=== PATIENT | female | born 1930 | race Hispanic/Latino ===

== ENCOUNTER 2017-03-29 09:00 | Inpatient (IN) | payer MEDICARE ==
--- NOTE | 2017-03-29 09:04 | C.PDOC ---
History Of Present Illness LIIMITED DUE TO CLINICAL CONDITION 86-YEAR-OLD FEMALE, IS BROUGHT TO THE EMERGENCY DEPARTMENT PER EMS CO RESP DISTRESS. PATIENT S/P KETAMINE AND NITROPASTE EN ROUTE, PATIENT STARTED ON CPAP W SOME MILD IMPROVEMENT. PS DENIES PRIOR SIMILAR EPISODE. SX ONGOING FOR 2 DAYS. Time Seen by Provider: 03/29/17 09:02 History Per: EMS History/Exam Limitations: clinical condition Onset/Duration Of Symptoms: Days (2) Current Symptoms Are (Timing): Still Present Past Medical History Reviewed: Historical Data, Nursing Documentation, Vital Signs Vital Signs: Last Vital Signs Temp 97.5 F L 03/29/17 09:00 Pulse 104 H 03/29/17 10:15 Resp 29 H 03/29/17 10:15 BP 167/81 H 03/29/17 10:15 Pulse Ox 100 03/29/17 10:15 Family History: States: No Known Family Hx Review Of Systems Review Of Systems: ROS cannot be obtained secondary to pt's inabilty to answer questions. Respiratory: Positive for: Shortness of Breath Physical Exam - Physical Exam Appears: Other (MOD RESPIRATORY DISTRESS) Skin: Warm, Dry, No Rash Head: Atraumatic, Normacephalic Eye(s): bilateral: Normal Inspection, PERRL Neck: Normal ROM Chest: Symmetrical Cardiovascular: Rhythm Regular, No Murmur Respiratory: Other (CPAP IN PROGRESS, RETRACTIONS, PROLONGED EXPIRATORY WHEEZE. PULMONARY EDEMA) Extremity: Normal ROM ED Course And Treatment - Laboratory Results Result Diagrams: 03/29/17 09:16 03/29/17 09:16 ECG: Interpreted By Me, Viewed By Me ECG Rhythm: Sinus Tachycardia, ST/T Changes (ST DEPRESSION II, III, AVF) Interpretation Of ECG: EKG. RATE: 111BPM. RHYTHM: SINUS TACH. INTERPRET UNCHANGED FROM INITIAL Rate From EC - Radiology CXR: Interpreted by Me, Viewed By Me (VASCULAR PROMINENCE, HYPERINFLATED) Progress - Re-Evaluation Re-evaluation Note: 03/29/17 10:15 Dr Duong listed as med online publisher as per JENNIFER, case was discussed w/ him, states he is no longer online publisher. Dr Cornejo notified. 03/29/17 10:42 APPEARS BETTER COMPARED TO INITIAL, ON BIPAP. VSS. 03/29/17 10:50 D/W DR CORTES MED FENCE ERECTOR WILL ADMIT - Data Reviewed Data Reviewed: Lab, Diagnostic imaging, EKG, Old records - Critical Care Citical Care: Excluding Proc Time Critical Care Time: 90 minutes - Continuity of Care Discussed patient case with:: Patient, On-call PMD-pt unassigned Disposition Counseled Patient/Family Regarding: Studies Performed, Diagnosis, Need For Followup - Disposition Disposition: HOSPITALIZED Disposition Time: 10:44 Condition: STABLE - POA Present On Arrival: None - Clinical Impression Clinical Impression: New onset of congestive heart failure, Dyspnea, Respiratory distress - Scribe Statement The provider has reviewed the documentation as recorded by the Scribe (Yareli Barrera) All medical record entries made by the Scribe were at my direction and personally dictated by me. I have reviewed the chart and agree that the record accurately reflects my personal performance of the history, physical exam, medical decision making, and the department course for this patient. I have also personally directed, reviewed, and agree with the discharge instructions and disposition. Decision To Admit - Pt Status Changed To: Hospital Disposition Of: Inpatient - Admit Certification Admit to Inpatient:: After my assessment, the patient will require hospitalization for at least two midnights. This is because of the severity of symptoms shown, intensity of services needed, and/or the medical risk in this patient being treated as an outpatient. - InPatient: Physician Admission Certification: I certify that this patient requires 2 or more midnights of care for the following reason:: SEE NOTE - . Bed Request Type: Telemetry Admitting Physician: Jorge A Cortes Patient Diagnosis: New onset of congestive heart failure, Dyspnea, Respiratory distress
[2017-03-29 09:13] VITALS: BMI 23.3
[2017-03-29] MEDS ORDERED: MethylPREDNISolone 40 mg Vial ONE (09:23)
[2017-03-29 09:25] LABS: BASO # 0.1 K/uL (0.0-0.2); BASO % 0.8 % (0.0-2.0); HEMOGLOBIN 14.8 g/dL (11.0-16.0); LYMPH # 0.6 K/uL (1.0-4.3); LYMPH % 5.4 % (20.0-40.0); MEAN CELL VOLUME 93.8 fL (81.0-99.0); MEAN CORPUSCULAR HEMOGLOBIN 31.4 pg (27.0-31.0); MEAN CORPUSCULAR HGB CONC 33.4 g/dL (33.0-37.0); MEAN PLATELET VOLUME 8.8 fL (7.2-11.7); MONO # 0.5 K/uL (0.0-0.8); MONO % 4.5 % (0.0-10.0); NEUT % 89.3 % (50.0-75.0); PLATELET COUNT 337 K/uL (130-400); RED CELL DISTRIBUTION WIDTH 14.4 % (11.5-14.5); WHITE BLOOD COUNT 11.2 K/uL (4.8-10.8)
[2017-03-29 09:25] LABS: VENOUS BLOOD GAS BASE EXCESS -2.8 mmol/L (0.0-2.0); VENOUS BLOOD GAS PCO2 37 mmHg (40-60); VENOUS BLOOD GAS PO2 55 mm/Hg (30-55); VENOUS BLOOD PH 7.38 (7.32-7.43)
[2017-03-29] MEDS: Albuterol-Ipratrop 3 mg / 0.5 (3 ml) UD IH SCH ×3 (09:30→09:50)
[2017-03-29 09:32] LABS: INR 1.1; PROTHROMBIN TIME 13.1 SECONDS (9.7-12.2)
--- NOTE | 2017-03-29 09:32 | RAD ---
Chest x-ray single frontal view History: Shortness of breath. Comparison: None available. Findings: Biapical pleural thickening with upper lobe granulomatous changes. Mild venous congestion. Bilateral hilar prominence. Patchy increased markings at the lung bases. Clinical correlation. Tortuous aorta. Heart size within normal limits. Impression: Biapical pleural thickening with upper lobe granulomatous changes. Mild venous congestion. Bilateral hilar prominence. Patchy increased markings at the lung bases. Clinical correlation.
[2017-03-29] MEDS ORDERED: Albuterol-Ipratrop 3 mg / 0.5 (3 ml) UD ONE (09:52)
[2017-03-29 09:54] LABS: ALBUMIN 4.4 g/dL (3.5-5.0); CALCIUM 8.5 mg/dl (8.6-10.4); GFR AFRICAN-AMERICAN > 60; GFR NON-AFRICAN AMERICAN 59
[2017-03-29 09:56] LABS: ALB/GLOB RATIO 1.1 (1.0-2.1); ALT/SGPT 15 U/L (9-52); AST/SGOT 31 U/L (14-36); BLOOD UREA NITROGEN 16 mg/dL (7-17); MAGNESIUM 1.5 mg/dL (1.6-2.3)
[2017-03-29 09:57] LABS: ABG ALLEN TEST POS; ARTERIAL BLOOD GAS O2 SAT 97.9 % (95-98); ARTERIAL BLOOD GAS PCO2 29 mm/Hg (35-45); ARTERIAL BLOOD GAS PH 7.45 (7.35-7.45); ARTERIAL BLOOD GAS PO2 212 mm/Hg (80-100); ARTERIAL BLOOD GAS TCO2 21.1 mmol/L (22-28)
[2017-03-29 10:06] LABS: B-TYPE NATRIURETIC PEPTIDE 4650 pg/mL (0-900)
[2017-03-29 10:20] LABS: LYMPHOCYTE 4 % (20-40); MONOCYTE 6 % (0-10); NEUTROPHIL 90 % (50-75); TOTAL CELLS COUNTED 100
[2017-03-29 10:21] LABS: PLATELET ESTIMATE NORMAL (NORMAL)
[2017-03-29] MEDS ORDERED: Metoprolol Succinate 12.5 mg XL PO ONE (12:38)
[2017-03-29 12:44] LABS: SQUAMOUS EPITHIAL < 1 /hpf (0-5); URINE BILIRUBIN NEGATIVE (NEGATIVE); URINE BLOOD 2+ (NEGATIVE); URINE CLARITY Clear (Clear); URINE COLOR Yellow (YELLOW); URINE GLUCOSE (UA) NORMAL (Normal); URINE LEUKOCYTE ESTERASE 1+ Leu/uL (Negative); URINE NITRATE NEGATIVE (NEGATIVE); URINE PROTEIN 2+ mg/dL (NEGATIVE); URINE UROBILINOGEN NORMAL mg/dL (0.2-1.0)
[2017-03-29] MEDS: Amoxicillin-Clav 500-125 mg Tab PO SCH (15:35)
[2017-03-29 16:17] LABS: CK-MB 1.54 ng/mL (0.0-3.38); TROPONIN I 0.084 ng/mL (0.00-0.120)
[2017-03-29] MEDS: guaiFENesin 600 mg ER Tab PO SCH (18:19)
--- NOTE | 2017-03-29 18:36 | CP.PCM.CON ---
Past Patient History - Past Social History Smoking Status: Never Smoked - PSYCHIATRIC Hx Substance Use: No - SURGICAL HISTORY Hx Surgeries: No - ANESTHESIA Hx Anesthesia: No Meds Allergies/Adverse Reactions: Allergies Allergy/AdvReac Type Severity Reaction Status Date / Time No Known Allergies Allergy Verified 03/29/17 09:13 - Medications Medications: Current Medications Albuterol/Ipratropium (Duoneb 3 Mg/0.5 Mg (3 Ml) Ud) 3 ml INH RQ6 [facility] Amoxicillin/Clavulanate Potassium (Augmentin 500 Mg-125 Mg Tab) 1 tab PO Q12H [facility] Last Admin: 03/29/17 15:35 Dose: 1 tab Aspirin (Aspirin Chewable) 81 mg PO DAILY [facility] Enoxaparin Sodium (Lovenox) 40 mg SC DAILY [facility] Guaifenesin (Mucinex La) 600 mg PO BID [facility] Last Admin: 03/29/17 18:19 Dose: 600 mg Methylprednisolone (Solu-Medrol) 60 mg IV Q12 [facility] Metoprolol Succinate (Toprol Xl) 12.5 mg PO DAILY [facility] Rosuvastatin Calcium (Crestor) 10 mg PO [facility] Results - Vital Signs Recent Vital Signs: Last Vital Signs Temp 98.0 F 03/29/17 16:27 Pulse 80 03/29/17 16:27 Resp 22 03/29/17 16:27 BP 155/59 H 03/29/17 16:27 Pulse Ox 100 03/29/17 16:27 - Labs Result Diagrams: 03/29/17 09:16 03/29/17 09:16 Labs: Laboratory Results - last 24 hr 03/29/17 03/29/17 03/29/17 09:04 09:16 09:16 WBC 11.2 H RBC 4.70 Hgb 14.8 Hct 44.1 MCV 93.8 MCH 31.4 H MCHC 33.4 RDW 14.4 Plt Count 337 MPV 8.8 Neut % (Auto) 89.3 H Lymph % (Auto) 5.4 L Grainger % (Auto) 4.5 Eos % (Auto) 0.0 Baso % (Auto) 0.8 Neut # 10.0 H Lymph # 0.6 L Grainger # 0.5 Eos # 0.0 Baso # 0.1 Neutrophils % (Manual) 90 H Lymphocytes % (Manual) 4 L Monocytes % (Manual) 6 Platelet Estimate Normal RBC Morphology Normal PT 13.1 H INR 1.1 APTT 26 Puncture Site pCO2 pO2 HCO3 ABG pH ABG Total CO2 ABG O2 Saturation ABG Base Excess Eliseo Test ABG Potassium VBG pH VBG pCO2 VBG HCO3 VBG Total CO2 VBG O2 Sat (Calc) VBG Base Excess VBG Potassium A-a O2 Difference Respiratory Index Glucose Lactate Vent Mode FiO2 Inspiratory BiPAP Expiratory BiPAP Sodium Potassium Chloride Carbon Dioxide Anion Gap BUN Creatinine Est GFR ( Amer) Est GFR (Non-Af Amer) Random Glucose Calcium Magnesium Total Bilirubin AST ALT Alkaline Phosphatase Total Creatine Kinase CK-MB (Mass) Troponin I NT-Pro-B Natriuret Pep Total Protein Albumin Globulin Albumin/Globulin Ratio Arterial Blood Potassium Venous Blood Potassium Urine Color Urine Clarity Urine pH Ur Specific [place] Urine Protein Urine Glucose (UA) Urine Ketones Urine Blood Urine Nitrate Urine Bilirubin Urine Urobilinogen Ur Leukocyte Esterase Urine WBC (Auto) Urine RBC (Auto) Ur Squamous Epith Cells Influenza Typ A,B (EIA) Negative for flu a/b 03/29/17 03/29/17 03/29/17 09:16 09:22 09:54 WBC RBC Hgb Hct MCV MCH MCHC RDW Plt Count MPV Neut % (Auto) Lymph % (Auto) Grainger % (Auto) Eos % (Auto) Baso % (Auto) Neut # Lymph # Grainger # Eos # Baso # Neutrophils % (Manual) Lymphocytes % (Manual) Monocytes % (Manual) Platelet Estimate RBC Morphology PT INR APTT Puncture Site Lra pCO2 29 L pO2 55 212 H HCO3 23.0 ABG pH 7.45 ABG Total CO2 21.1 L ABG O2 Saturation 97.9 ABG Base Excess -2.6 L Eliseo Test Pos ABG Potassium 3.4 L VBG pH 7.38 VBG pCO2 37 L VBG HCO3 22.5 VBG Total CO2 23.0 VBG O2 Sat (Calc) 90.4 H VBG Base Excess -2.8 L VBG Potassium 5.6 H A-a O2 Difference 108.0 Respiratory Index 0.5 Glucose 154 H 145 H Lactate 1.5 1.0 Vent Mode Bipap FiO2 50.0 Inspiratory BiPAP 12 Expiratory BiPAP 6 Sodium 135 138.0 138.0 Potassium 4.4 Chloride 102 106.0 108.0 H Carbon Dioxide 20 L Anion Gap 18 BUN 16 Creatinine 0.9 Est GFR ( Amer) > 60 Est GFR (Non-Af Amer) 59 Random Glucose 144 H Calcium 8.5 L Magnesium 1.5 L Total Bilirubin 0.9 AST 31 ALT 15 Alkaline Phosphatase 67 Total Creatine Kinase CK-MB (Mass) Troponin I 0.0820 NT-Pro-B Natriuret Pep 4650 H Total Protein 8.5 H Albumin 4.4 Globulin 4.0 H Albumin/Globulin Ratio 1.1 Arterial Blood Potassium 3.4 L Venous Blood Potassium 5.6 H Urine Color Urine Clarity Urine pH Ur Specific [place] Urine Protein Urine Glucose (UA) Urine Ketones Urine Blood Urine Nitrate Urine Bilirubin Urine Urobilinogen Ur Leukocyte Esterase Urine WBC (Auto) Urine RBC (Auto) Ur Squamous Epith Cells Influenza Typ A,B (EIA) 03/29/17 03/29/17 12:18 15:46 WBC RBC Hgb Hct MCV MCH MCHC RDW Plt Count MPV Neut % (Auto) Lymph % (Auto) Grainger % (Auto) Eos % (Auto) Baso % (Auto) Neut # Lymph # Grainger # Eos # Baso # Neutrophils % (Manual) Lymphocytes % (Manual) Monocytes % (Manual) Platelet Estimate RBC Morphology PT INR APTT Puncture Site pCO2 pO2 HCO3 ABG pH ABG Total CO2 ABG O2 Saturation ABG Base Excess Eliseo Test ABG Potassium VBG pH VBG pCO2 VBG HCO3 VBG Total CO2 VBG O2 Sat (Calc) VBG Base Excess VBG Potassium A-a O2 Difference Respiratory Index Glucose Lactate Vent Mode FiO2 Inspiratory BiPAP Expiratory BiPAP Sodium Potassium Chloride Carbon Dioxide Anion Gap BUN Creatinine Est GFR ( Amer) Est GFR (Non-Af Amer) Random Glucose Calcium Magnesium Total Bilirubin AST ALT Alkaline Phosphatase Total Creatine Kinase 106 CK-MB (Mass) 1.54 Troponin I 0.0840 NT-Pro-B Natriuret Pep Total Protein Albumin Globulin Albumin/Globulin Ratio Arterial Blood Potassium Venous Blood Potassium Urine Color Yellow Urine Clarity Clear Urine pH 5.0 Ur Specific [place] 1.010 Urine Protein 2+ H Urine Glucose (UA) Normal Urine Ketones Negative Urine Blood 2+ H Urine Nitrate Negative Urine Bilirubin Negative Urine Urobilinogen Normal Ur Leukocyte Esterase 1+ H Urine WBC (Auto) 16 H Urine RBC (Auto) 5 H Ur Squamous Epith Cells < 1 Influenza Typ A,B (EIA)
[2017-03-29] MEDS: Albuterol-Ipratrop 3 mg / 0.5 (3 ml) UD INH SCH (20:50)
--- NOTE | 2017-03-29 22:28 | CON ---
DATE: CARDIOLOGY CONSULTATION HISTORY OF PRESENT ILLNESS: This is an 86-year-old white female, came to the emergency room. The patient was brought to the emergency room by EMS. The patient was given ketamine and nitro paste en route. The patient complained of shortness of breath, which was increasing for the last 2 days. The patient also has mild chest pain. No history of nausea, vomiting or abdominal pain. The patient appears confused. The patient was started on CPAP with mild improvement. PAST MEDICAL HISTORY: History of hypertension, atherosclerotic heart disease. The patient is on Benicar 20 mg p.o. daily. No myocardial infarction. FAMILY HISTORY: No known inherited disease. SOCIAL HISTORY: The patient is a nonsmoker, nonalcoholic. No IVDA. ALLERGIES: NO KNOWN ALLERGY. REVIEW OF SYSTEMS: Respiratory system positive for shortness of breath. GI system negative for nausea, vomiting, abdominal pain. COAT EXAMINER: No focal neurological complaints offered. Cardiovascular system: Positive for mild chest pain. No edema of the legs. No urinary complaints. Psychiatrically, the patient is stable. All other systems are negative. PHYSICAL EXAMINATION: GENERAL: This is an 86-year-old white female, tachypneic, dyspneic. VITAL SIGNS: Temperature 97.5, pulse 104, respirations 29, blood pressure 167/81 mmHg, pulse ox is 100% at room air. HEENT: Normal. NECK: JVP is flat. Carotids, no bruit. LUNGS: Bilateral rales present. Poor air entry. No wheezing. HEART: S1, S2 normal. Tachycardic. No gallop. No murmur. ABDOMEN: Soft, nontender. No organomegaly. COAT EXAMINER: No focal neurological deficit. EXTREMITIES: No edema of the legs. LABORATORY DATA: On admission, EKG shows sinus tachycardia with left axis deviation. Nonspecific ST-T changes. CBC is within normal limits. BMP shows blood sugar 144 and potassium 4.4. Chest x-ray shows bilateral apical thickening and mild pulmonary congestion. IMPRESSION: Congestive heart failure. Rule out acute chronic obstructive pulmonary disease. PLAN: The patient will be admitted. Suggest aggravate the present management. The patient will need diuretic and beta blockers. Echocardiogram and work up to rule out myocardial infarction. Deshawn Ambrose MD
--- NOTE | 2017-03-29 23:31 | CP.PCM.HP ---
History of Present Illness - History of Present Illness History of Present Illness: CC: SHORTNESS OF BREATH, CHEST PAIN' HPI: 86-YEAR-OLD WHITE FEMALE WITH H/O HTN, HYPERLIPIDEMIA, AND SHE IS CHRONIC SMOKER , IS BROUGHT TO THE EMERGENCY DEPARTMENT PER EMS CO RESP DISTRESS, COUGH , CONGESTION AND SHOTNESS OF BREATH PATIENT S/P KETAMINE AND NITROPASTE EN ROUTE , PATIENT STARTED ON CPAP W SOME MILD IMPROVEMENT. PS DENIES PRIOR SIMILAR EPISODE. SX ONGOING FOR 2 DAYS. PT WAS HAVING EXERTIONAL CHEST PAIN ON TAKING DEEP BREATH Present on Admission - Present on Admission Any Indicators Present on Admission: Yes Review of Systems - Review of Systems Systems not reviewed;Unavailable: Respiratory Distress - Constitutional Constitutional: Fatigue, Lethargy, Malaise - EENT Eyes: absent: As Per HPI, Blind Spots, Blurred Vision, Change in Vision, Decreased Night Vision, Diplopia, Discharge, Dry Eye, Exophthalmos, Floaters, Irritation, Itchy Eyes, Loss of Peripheral Vision, Pain, Photophobia, Requires Corrective Lenses, Sees Flashes, Spots in Vision, Tunnel Vision, Other Visual Disturbances, Loss of Vision, Other Ears: absent: As Per HPI, Decreased Hearing, Ear Discharge, Ear Pain, Tinnitus, Abnormal Hearing, Disequilibrium, Dizziness, Other Nose/Mouth/Throat: absent: As Per HPI, Epistaxis, Nasal Congestion, Nasal Discharge, Nasal Obstruction, Nasal Trauma, Nose Pain, Post Nasal Drip, Sinus Pain, Sinus Pressure, Bleeding Gums, Change in Voice, Dental Pain, Dry Mouth, Dysphagia, Halitosis, Hoarsness, Lip Swelling, Mouth Lesions, Mouth Pain, Odynophagia, Sore Throat, Throat Swelling, Tongue Swelling, Facial Pain, Neck Pain, Neck Mass, Other - Respiratory Respiratory: Cough, Dyspnea, Dyspnea on Exertion, Pain on Inspiration - Gastrointestinal Gastrointestinal: absent: As Per HPI, Abdominal Pain, Belching, Bloating, Change in Bowel Habits, Change in Stool Character, Coffee Ground Emesis, Constipation, Cramping, Diarrhea, Dyspepsia, Dysphagia, Early Satiety, Excessive Flatus, Fecal Incontinence, Heartburn, Hematemesis, Hematochezia, Loose Stools, Melena, Nausea, Odynophagia, Temesmus, Vomiting, Other - Genitourinary Genitourinary: absent: As Per HPI, Change in Urinary Stream, Difficulty Urinating, Dysuria, Flank Pain, Hematuria, Pyuria, Nocturia, Urinary Incontinence, Urinary Frequency, Urinary Hesitance, Urinary Urgency, Voiding Freq/Small Amts, Freq UTI, Hx Renal/Bladder Calculi, Hx /Renal Surgery, Bladder Distension, Other Past Patient History - Past Medical History & Family History Past Medical History?: Yes - Past Social History Smoking Status: Current Some Days Smoker - CARDIAC Hx Hypertension: Yes - MUSCULOSKELETAL/RHEUMATOLOGICAL Hx Falls: No - PSYCHIATRIC Hx Substance Use: No - SURGICAL HISTORY Hx Surgeries: No Hx Hysterectomy: Yes - ANESTHESIA Hx Anesthesia: Yes Hx Anesthesia Reactions: No Meds Allergies/Adverse Reactions: Allergies Allergy/AdvReac Type Severity Reaction Status Date / Time No Known Allergies Allergy Verified 03/29/17 09:13 Physical Exam - Constitutional Appears: No Acute Distress - Head Exam Head Exam: ATRAUMATIC, NORMAL INSPECTION, NORMOCEPHALIC - Eye Exam Eye Exam: EOMI, Normal appearance, PERRL Pupil Exam: NORMAL ACCOMODATION, PERRL - Respiratory Exam Respiratory Exam: Decreased Breath Sounds, Rales, Rhonchi - Cardiovascular Exam Cardiovascular Exam: REGULAR RHYTHM, +S1, +S2, Systolic Murmur - GI/Abdominal Exam GI & Abdominal Exam: Normal Bowel Sounds, Soft. absent: Tenderness Results - Vital Signs Recent Vital Signs: Last Vital Signs Temp 98.0 F 03/29/17 16:27 Pulse 80 03/29/17 21:23 Resp 22 03/29/17 16:27 BP 155/59 H 03/29/17 16:27 Pulse Ox 100 03/29/17 16:27 - Labs Result Diagrams: 03/29/17 09:16 03/29/17 09:16 Labs: Laboratory Results - last 24 hr 03/29/17 03/29/17 03/29/17 09:04 09:16 09:16 WBC 11.2 H RBC 4.70 Hgb 14.8 Hct 44.1 MCV 93.8 MCH 31.4 H MCHC 33.4 RDW 14.4 Plt Count 337 MPV 8.8 Neut % (Auto) 89.3 H Lymph % (Auto) 5.4 L Potter % (Auto) 4.5 Eos % (Auto) 0.0 Baso % (Auto) 0.8 Neut # 10.0 H Lymph # 0.6 L Potter # 0.5 Eos # 0.0 Baso # 0.1 Neutrophils % (Manual) 90 H Lymphocytes % (Manual) 4 L Monocytes % (Manual) 6 Platelet Estimate Normal RBC Morphology Normal PT 13.1 H INR 1.1 APTT 26 Puncture Site pCO2 pO2 HCO3 ABG pH ABG Total CO2 ABG O2 Saturation ABG Base Excess Eliseo Test ABG Potassium VBG pH VBG pCO2 VBG HCO3 VBG Total CO2 VBG O2 Sat (Calc) VBG Base Excess VBG Potassium A-a O2 Difference Respiratory Index Glucose Lactate Vent Mode FiO2 Inspiratory BiPAP Expiratory BiPAP Sodium Potassium Chloride Carbon Dioxide Anion Gap BUN Creatinine Est GFR ( Amer) Est GFR (Non-Af Amer) Random Glucose Calcium Magnesium Total Bilirubin AST ALT Alkaline Phosphatase Total Creatine Kinase CK-MB (Mass) Troponin I NT-Pro-B Natriuret Pep Total Protein Albumin Globulin Albumin/Globulin Ratio Arterial Blood Potassium Venous Blood Potassium Urine Color Urine Clarity Urine pH Ur Specific [place] Urine Protein Urine Glucose (UA) Urine Ketones Urine Blood Urine Nitrate Urine Bilirubin Urine Urobilinogen Ur Leukocyte Esterase Urine WBC (Auto) Urine RBC (Auto) Ur Squamous Epith Cells Influenza Typ A,B (EIA) Negative for flu a/b 03/29/17 03/29/17 03/29/17 09:16 09:22 09:54 WBC RBC Hgb Hct MCV MCH MCHC RDW Plt Count MPV Neut % (Auto) Lymph % (Auto) Potter % (Auto) Eos % (Auto) Baso % (Auto) Neut # Lymph # Potter # Eos # Baso # Neutrophils % (Manual) Lymphocytes % (Manual) Monocytes % (Manual) Platelet Estimate RBC Morphology PT INR APTT Puncture Site Lra pCO2 29 L pO2 55 212 H HCO3 23.0 ABG pH 7.45 ABG Total CO2 21.1 L ABG O2 Saturation 97.9 ABG Base Excess -2.6 L Eliseo Test Pos ABG Potassium 3.4 L VBG pH 7.38 VBG pCO2 37 L VBG HCO3 22.5 VBG Total CO2 23.0 VBG O2 Sat (Calc) 90.4 H VBG Base Excess -2.8 L VBG Potassium 5.6 H A-a O2 Difference 108.0 Respiratory Index 0.5 Glucose 154 H 145 H Lactate 1.5 1.0 Vent Mode Bipap FiO2 50.0 Inspiratory BiPAP 12 Expiratory BiPAP 6 Sodium 135 138.0 138.0 Potassium 4.4 Chloride 102 106.0 108.0 H Carbon Dioxide 20 L Anion Gap 18 BUN 16 Creatinine 0.9 Est GFR ( Amer) > 60 Est GFR (Non-Af Amer) 59 Random Glucose 144 H Calcium 8.5 L Magnesium 1.5 L Total Bilirubin 0.9 AST 31 ALT 15 Alkaline Phosphatase 67 Total Creatine Kinase CK-MB (Mass) Troponin I 0.0820 NT-Pro-B Natriuret Pep 4650 H Total Protein 8.5 H Albumin 4.4 Globulin 4.0 H Albumin/Globulin Ratio 1.1 Arterial Blood Potassium 3.4 L Venous Blood Potassium 5.6 H Urine Color Urine Clarity Urine pH Ur Specific [place] Urine Protein Urine Glucose (UA) Urine Ketones Urine Blood Urine Nitrate Urine Bilirubin Urine Urobilinogen Ur Leukocyte Esterase Urine WBC (Auto) Urine RBC (Auto) Ur Squamous Epith Cells Influenza Typ A,B (EIA) 03/29/17 03/29/17 12:18 15:46 WBC RBC Hgb Hct MCV MCH MCHC RDW Plt Count MPV Neut % (Auto) Lymph % (Auto) Potter % (Auto) Eos % (Auto) Baso % (Auto) Neut # Lymph # Potter # Eos # Baso # Neutrophils % (Manual) Lymphocytes % (Manual) Monocytes % (Manual) Platelet Estimate RBC Morphology PT INR APTT Puncture Site pCO2 pO2 HCO3 ABG pH ABG Total CO2 ABG O2 Saturation ABG Base Excess Eliseo Test ABG Potassium VBG pH VBG pCO2 VBG HCO3 VBG Total CO2 VBG O2 Sat (Calc) VBG Base Excess VBG Potassium A-a O2 Difference Respiratory Index Glucose Lactate Vent Mode FiO2 Inspiratory BiPAP Expiratory BiPAP Sodium Potassium Chloride Carbon Dioxide Anion Gap BUN Creatinine Est GFR ( Amer) Est GFR (Non-Af Amer) Random Glucose Calcium Magnesium Total Bilirubin AST ALT Alkaline Phosphatase Total Creatine Kinase 106 CK-MB (Mass) 1.54 Troponin I 0.0840 NT-Pro-B Natriuret Pep Total Protein Albumin Globulin Albumin/Globulin Ratio Arterial Blood Potassium Venous Blood Potassium Urine Color Yellow Urine Clarity Clear Urine pH 5.0 Ur Specific [place] 1.010 Urine Protein 2+ H Urine Glucose (UA) Normal Urine Ketones Negative Urine Blood 2+ H Urine Nitrate Negative Urine Bilirubin Negative Urine Urobilinogen Normal Ur Leukocyte Esterase 1+ H Urine WBC (Auto) 16 H Urine RBC (Auto) 5 H Ur Squamous Epith Cells < 1 Influenza Typ A,B (EIA) Assessment & Plan (1) Dyspnea Status: Acute (2) New onset of congestive heart failure Status: Acute (3) Respiratory distress Status: Acute
[2017-03-30] MEDS ORDERED: Enalaprilat 2.5 MG/2 ML IV ONE (01:03)
[2017-03-30] MEDS: Amoxicillin-Clav 500-125 mg Tab PO SCH ×2 (01:05→13:38)
[2017-03-30] MEDS: Albuterol-Ipratrop 3 mg / 0.5 (3 ml) UD INH SCH ×4 (01:59→20:08)
[2017-03-30] MEDS ORDERED: Nitroglycerin 2% Ointment Foilpak UD TOP SCH (06:00)
[2017-03-30] MEDS: Nitroglycerin 2% Ointment Foilpak UD TOP SCH ×3 (06:12→17:27)
[2017-03-30] MEDS: Enoxaparin 40 mg Syringe SC SCH (09:42)
[2017-03-30] MEDS: guaiFENesin 600 mg ER Tab PO SCH ×2 (09:43→17:26)
[2017-03-30] MEDS ORDERED: Metoprolol Succinate 12.5 mg XL PO SCH (10:00)
--- NOTE | 2017-03-30 12:04 | CP.PCM.PN ---
Subjective - Date & Time of Evaluation Date of Evaluation: 03/30/17 Time of Evaluation: 12:01 - Subjective Subjective: SOB PRESENT. RESP DISTRESS. CHF COPD HTN. Objective - Vital Signs/Intake and Output Vital Signs (last 24 hours): Temp Pulse Resp BP Pulse Ox 99.0 F 78 18 156/66 H 97 03/30/17 07:25 03/30/17 08:46 03/30/17 07:25 03/30/17 09:43 03/30/17 07:25 Intake and Output: 03/30/17 03/30/17 06:59 18:59 Intake Total 200 Balance 200 - Medications Medications: Current Medications Albuterol/Ipratropium (Duoneb 3 Mg/0.5 Mg (3 Ml) Ud) 3 ml INH RQ6 [facility] Last Admin: 03/30/17 08:46 Dose: 3 ml Amoxicillin/Clavulanate Potassium (Augmentin 500 Mg-125 Mg Tab) 1 tab PO Q12H [facility] Last Admin: 03/30/17 01:05 Dose: 1 tab Aspirin (Aspirin Chewable) 81 mg PO DAILY [facility] Last Admin: 03/30/17 09:43 Dose: 81 mg Enoxaparin Sodium (Lovenox) 40 mg SC DAILY [facility] Last Admin: 03/30/17 09:42 Dose: 40 mg Furosemide (Lasix) 20 mg IVP DAILY [facility] Last Admin: 03/30/17 09:43 Dose: 20 mg Guaifenesin (Mucinex La) 600 mg PO BID [facility] Last Admin: 03/30/17 09:43 Dose: 600 mg Methylprednisolone (Solu-Medrol) 60 mg IV Q6 [facility] Last Admin: 03/30/17 06:14 Dose: 60 mg Metoprolol Succinate (Toprol Xl) 12.5 mg PO DAILY [facility] Last Admin: 03/30/17 09:43 Dose: 12.5 mg Nitroglycerin (Nitro-Bid 2% Oint) 1 ea TOP Q6 [facility] Last Admin: 03/30/17 06:12 Dose: 1 ea Pneumococcal Polyvalent Vaccine (Pneumovax 23 Vaccine) 0.5 ml IM .ONCE ONE Stop: 04/01/17 10:01 Rosuvastatin Calcium (Crestor) 10 mg PO HS [facility] Last Admin: 03/29/17 22:16 Dose: 10 mg - Labs Labs: 03/29/17 09:16 03/29/17 09:16 PT 13.1 SECONDS (9.7-12.2) H 03/29/17 09:16 INR 1.1 03/29/17 09:16 APTT 26 SECONDS (21-34) 03/29/17 09:16 - Constitutional Appears: In Acute Distress, Chronically Ill - Eye Exam Eye Exam: PERRL - ENT Exam ENT Exam: Mucous Membranes Moist - Respiratory Exam Respiratory Exam: Decreased Breath Sounds, Rhonchi - Cardiovascular Exam Cardiovascular Exam: REGULAR RHYTHM, +S1, +S2 - GI/Abdominal Exam GI & Abdominal Exam: Soft, Normal Bowel Sounds - Extremities Exam Extremities Exam: Full ROM, Normal Capillary Refill, Normal Inspection. absent : Joint Swelling, Pedal Edema - Back Exam Back Exam: NORMAL INSPECTION - Neurological Exam Neurological Exam: Alert, Awake, CN II-XII Intact, Normal Gait, Oriented x3 - Psychiatric Exam Psychiatric exam: Normal Affect, Normal Mood Assessment and Plan - Assessment and Plan (Free Text) Assessment: CHF.COPD. Plan: FOR DIURETICS AND BETA BLOCKERS.
--- NOTE | 2017-03-30 12:57 | CP.PCM.PN ---
Subjective - Date & Time of Evaluation Date of Evaluation: 03/30/17 Time of Evaluation: 11:15 - Subjective Subjective: patient seen and examined Still complaining of shortness of breath On BiPAP at night Afebrile Dry cough No chest pain Objective - Vital Signs/Intake and Output Vital Signs (last 24 hours): Temp Pulse Resp BP Pulse Ox 99.0 F 78 18 156/66 H 97 03/30/17 07:25 03/30/17 08:46 03/30/17 07:25 03/30/17 09:43 03/30/17 07:25 Intake and Output: 03/30/17 03/30/17 06:59 18:59 Intake Total 200 Balance 200 - Medications Medications: Current Medications Albuterol/Ipratropium (Duoneb 3 Mg/0.5 Mg (3 Ml) Ud) 3 ml INH RQ6 [facility] Last Admin: 03/30/17 08:46 Dose: 3 ml Amoxicillin/Clavulanate Potassium (Augmentin 500 Mg-125 Mg Tab) 1 tab PO Q12H [facility] Last Admin: 03/30/17 01:05 Dose: 1 tab Aspirin (Aspirin Chewable) 81 mg PO DAILY [facility] Last Admin: 03/30/17 09:43 Dose: 81 mg Enoxaparin Sodium (Lovenox) 40 mg SC DAILY [facility] Last Admin: 03/30/17 09:42 Dose: 40 mg Furosemide (Lasix) 20 mg IVP DAILY [facility] Last Admin: 03/30/17 09:43 Dose: 20 mg Guaifenesin (Mucinex La) 600 mg PO BID [facility] Last Admin: 03/30/17 09:43 Dose: 600 mg Methylprednisolone (Solu-Medrol) 60 mg IV Q6 [facility] Last Admin: 03/30/17 06:14 Dose: 60 mg Metoprolol Succinate (Toprol Xl) 12.5 mg PO DAILY [facility] Last Admin: 03/30/17 09:43 Dose: 12.5 mg Nitroglycerin (Nitro-Bid 2% Oint) 1 ea TOP Q6 [facility] Last Admin: 03/30/17 06:12 Dose: 1 ea Pneumococcal Polyvalent Vaccine (Pneumovax 23 Vaccine) 0.5 ml IM .ONCE ONE Stop: 04/01/17 10:01 Rosuvastatin Calcium (Crestor) 10 mg PO HS [facility] Last Admin: 03/29/17 22:16 Dose: 10 mg - Labs Labs: 03/29/17 09:16 03/29/17 09:16 PT 13.1 SECONDS (9.7-12.2) H 03/29/17 09:16 INR 1.1 03/29/17 09:16 APTT 26 SECONDS (21-34) 03/29/17 09:16 - Head Exam Head Exam: ATRAUMATIC, NORMOCEPHALIC - Eye Exam Eye Exam: Normal appearance - ENT Exam ENT Exam: Mucous Membranes Moist - Neck Exam Neck Exam: Normal Inspection - Respiratory Exam Respiratory Exam: Rhonchi, Wheezes - Cardiovascular Exam Cardiovascular Exam: REGULAR RHYTHM - GI/Abdominal Exam GI & Abdominal Exam: Soft, Normal Bowel Sounds Assessment and Plan (1) COPD exacerbation Assessment & Plan: Patient witlong history of smoking Continue nebulizer treatment Continue IV steroids BiPAP Pulmonary function test Followup ABG room air Status: Acute (2) Respiratory distress Status: Acute
[2017-03-30] MEDS ORDERED: Albuterol-Ipratrop 3 mg / 0.5 (3 ml) UD INH STA (18:11)
[2017-03-30] MEDS: Atropine-Diphenoxylate 0.025-2.5 mg Tab PO PRN (20:19)
--- NOTE | 2017-03-30 23:29 | CP.PCM.PN ---
Subjective - Date & Time of Evaluation Date of Evaluation: 03/30/17 Time of Evaluation: 19:20 - Subjective Subjective: patient seen and examined, c/o loose wattery stool Still complaining of shortness of breath On BiPAP at night Afebrile Dry cough No chest pain Objective - Vital Signs/Intake and Output Vital Signs (last 24 hours): Temp Pulse Resp BP Pulse Ox 98 F 90 20 166/74 H 96 03/30/17 15:53 03/30/17 22:52 03/30/17 15:53 03/30/17 15:53 03/30/17 15:53 Intake and Output: 03/30/17 03/31/17 18:59 06:59 Intake Total 250 Balance 250 - Medications Medications: Current Medications Albuterol/Ipratropium (Duoneb 3 Mg/0.5 Mg (3 Ml) Ud) 3 ml INH RQ6 [facility] Last Admin: 03/30/17 20:08 Dose: Not Given Amoxicillin/Clavulanate Potassium (Augmentin 500 Mg-125 Mg Tab) 1 tab PO Q12H [facility] Last Admin: 03/30/17 13:38 Dose: 1 tab Aspirin (Aspirin Chewable) 81 mg PO DAILY [facility] Last Admin: 03/30/17 09:43 Dose: 81 mg Diphenoxylate HCl/Atropine (Lomotil 0.025-2.5 Mg Tablet) 1 tab PO Q4 PRN PRN Reason: Diarrhea Last Admin: 03/30/17 20:19 Dose: 1 tab Enoxaparin Sodium (Lovenox) 40 mg SC DAILY [facility] Last Admin: 03/30/17 09:42 Dose: 40 mg Furosemide (Lasix) 20 mg IVP DAILY [facility] Last Admin: 03/30/17 09:43 Dose: 20 mg Guaifenesin (Mucinex La) 600 mg PO BID [facility] Last Admin: 03/30/17 17:26 Dose: 600 mg Loperamide HCl (Imodium) 2 mg PO Q4 PRN PRN Reason: Diarrhea Losartan Potassium (Cozaar) 50 mg PO DAILY [facility] Methylprednisolone (Solu-Medrol) 60 mg IV Q6 [facility] Last Admin: 03/30/17 17:27 Dose: 60 mg Metoprolol Succinate (Toprol Xl) 25 mg PO DAILY [facility] Pneumococcal Polyvalent Vaccine (Pneumovax 23 Vaccine) 0.5 ml IM .ONCE ONE Stop: 04/01/17 10:01 Rosuvastatin Calcium (Crestor) 10 mg PO HS [facility] Last Admin: 03/30/17 21:20 Dose: 10 mg - Labs Labs: 03/29/17 09:16 03/29/17 09:16 PT 13.1 SECONDS (9.7-12.2) H 03/29/17 09:16 INR 1.1 03/29/17 09:16 APTT 26 SECONDS (21-34) 03/29/17 09:16 - Constitutional Appears: No Acute Distress - Head Exam Head Exam: ATRAUMATIC, NORMAL INSPECTION, NORMOCEPHALIC - Eye Exam Eye Exam: EOMI, Normal appearance, PERRL Pupil Exam: NORMAL ACCOMODATION, PERRL - Respiratory Exam Respiratory Exam: Decreased Breath Sounds, Rhonchi - Cardiovascular Exam Cardiovascular Exam: REGULAR RHYTHM, +S1, +S2. absent: Murmur - GI/Abdominal Exam GI & Abdominal Exam: Soft, Normal Bowel Sounds. absent: Tenderness Assessment and Plan (1) Dyspnea Status: Acute (2) New onset of congestive heart failure Status: Acute (3) Respiratory distress Status: Acute (4) Diarrhea Assessment & Plan: most ikely due to zithromax D/c zithro Status: Acute
[2017-03-31] MEDS: Amoxicillin-Clav 500-125 mg Tab PO SCH ×2 (00:10→11:56)
[2017-03-31] MEDS: Albuterol-Ipratrop 3 mg / 0.5 (3 ml) UD INH SCH ×4 (01:09→19:17)
[2017-03-31 06:55] LABS: BLOOD UREA NITROGEN 43 mg/dL (7-17); CALCIUM 8.3 mg/dl (8.6-10.4); GFR AFRICAN-AMERICAN > 60; GFR NON-AFRICAN AMERICAN 59
[2017-03-31 06:57] LABS: HEMOGLOBIN 14.3 g/dL (11.0-16.0); MEAN CELL VOLUME 94.4 fL (81.0-99.0); MEAN CORPUSCULAR HGB CONC 33.8 g/dL (33.0-37.0); MEAN PLATELET VOLUME 8.4 fL (7.2-11.7); RBC 4.48 Mil/uL (3.80-5.20); RED CELL DISTRIBUTION WIDTH 14.4 % (11.5-14.5); WHITE BLOOD COUNT 12.4 K/uL (4.8-10.8)
[2017-03-31] MEDS: Enoxaparin 40 mg Syringe SC SCH (08:59)
[2017-03-31] MEDS: Metoprolol Succinate 25 mg XL Tab PO SCH (08:59)
[2017-03-31] MEDS: guaiFENesin 600 mg ER Tab PO SCH ×2 (08:59→17:25)
--- NOTE | 2017-03-31 10:46 | CP.PCM.PN ---
Subjective - Date & Time of Evaluation Date of Evaluation: 03/31/17 Time of Evaluation: 10:44 - Subjective Subjective: SLIGHTLY BETTER. SOB PRESENT. ON BIPAP. BP HIGH. BUN 40. D/C LASIX. LOSARTAN ADDED FOR BP BY . AGREE. ECHO REPORT STILL AWAITING. COPD. Objective - Vital Signs/Intake and Output Vital Signs (last 24 hours): Temp Pulse Resp BP Pulse Ox 98.0 F 100 H 18 170/69 H 100 03/31/17 07:25 03/31/17 08:02 03/31/17 07:25 03/31/17 08:59 03/31/17 07:25 - Medications Medications: Current Medications Albuterol/Ipratropium (Duoneb 3 Mg/0.5 Mg (3 Ml) Ud) 3 ml INH RQ6 [facility] Last Admin: 03/31/17 07:05 Dose: 3 ml Amoxicillin/Clavulanate Potassium (Augmentin 500 Mg-125 Mg Tab) 1 tab PO Q12H [facility] Last Admin: 03/31/17 00:10 Dose: 1 tab Aspirin (Aspirin Chewable) 81 mg PO DAILY [facility] Last Admin: 03/31/17 08:59 Dose: 81 mg Diphenoxylate HCl/Atropine (Lomotil 0.025-2.5 Mg Tablet) 1 tab PO Q4 PRN PRN Reason: Diarrhea Last Admin: 03/30/17 20:19 Dose: 1 tab Enoxaparin Sodium (Lovenox) 40 mg SC DAILY [facility] Last Admin: 03/31/17 08:59 Dose: 40 mg Guaifenesin (Mucinex La) 600 mg PO BID [facility] Last Admin: 03/31/17 08:59 Dose: 600 mg Loperamide HCl (Imodium) 2 mg PO Q4 PRN PRN Reason: Diarrhea Losartan Potassium (Cozaar) 50 mg PO DAILY [facility] Methylprednisolone (Solu-Medrol) 60 mg IV Q6 [facility] Last Admin: 03/31/17 05:32 Dose: 60 mg Metoprolol Succinate (Toprol Xl) 25 mg PO DAILY [facility] Last Admin: 03/31/17 08:59 Dose: 25 mg Pneumococcal Polyvalent Vaccine (Pneumovax 23 Vaccine) 0.5 ml IM .ONCE ONE Stop: 04/01/17 10:01 Rosuvastatin Calcium (Crestor) 10 mg PO HS [facility] Last Admin: 03/30/17 21:20 Dose: 10 mg - Labs Labs: 03/31/17 06:34 03/31/17 06:34 PT 13.1 SECONDS (9.7-12.2) H 03/29/17 09:16 INR 1.1 03/29/17 09:16 APTT 26 SECONDS (21-34) 03/29/17 09:16 - Constitutional Appears: In Acute Distress, Chronically Ill - Eye Exam Eye Exam: PERRL - ENT Exam ENT Exam: Mucous Membranes Moist - Respiratory Exam Respiratory Exam: Decreased Breath Sounds, Rhonchi, NORMAL BREATHING PATTERN - Cardiovascular Exam Cardiovascular Exam: REGULAR RHYTHM, +S1, +S2 - GI/Abdominal Exam GI & Abdominal Exam: Soft, Normal Bowel Sounds - Extremities Exam Extremities Exam: Full ROM, Normal Capillary Refill, Normal Inspection. absent : Joint Swelling, Pedal Edema - Back Exam Back Exam: NORMAL INSPECTION - Neurological Exam Neurological Exam: Alert, Awake, CN II-XII Intact, Normal Gait, Oriented x3 - Psychiatric Exam Psychiatric exam: Normal Affect, Normal Mood Assessment and Plan - Assessment and Plan (Free Text) Assessment: CHF, COPD, HTN. Plan: CT PRESENT TREATMENT.
[2017-03-31] MEDS: Atropine-Diphenoxylate 0.025-2.5 mg Tab PO PRN (11:51)
--- NOTE | 2017-03-31 17:30 | CP.PCM.PN ---
Subjective - Date & Time of Evaluation Date of Evaluation: 03/31/17 Time of Evaluation: 16:35 - Subjective Subjective: The patient seen and examined Less shortness of breath and wheezing Still on BiPAP Afebrile No chest pain Objective - Vital Signs/Intake and Output Vital Signs (last 24 hours): Temp Pulse Resp BP Pulse Ox 98.3 F 96 H 18 170/60 H 98 03/31/17 16:08 03/31/17 16:08 03/31/17 16:08 03/31/17 16:08 03/31/17 16:08 Intake and Output: 03/31/17 03/31/17 06:59 18:59 Intake Total 450 Balance 450 - Medications Medications: Current Medications Albuterol/Ipratropium (Duoneb 3 Mg/0.5 Mg (3 Ml) Ud) 3 ml INH RQ6 [facility] Last Admin: 03/31/17 13:51 Dose: 3 ml Amoxicillin/Clavulanate Potassium (Augmentin 500 Mg-125 Mg Tab) 1 tab PO Q12H [facility] Last Admin: 03/31/17 11:56 Dose: 1 tab Aspirin (Aspirin Chewable) 81 mg PO DAILY [facility] Last Admin: 03/31/17 08:59 Dose: 81 mg Diphenoxylate HCl/Atropine (Lomotil 0.025-2.5 Mg Tablet) 1 tab PO Q4 PRN PRN Reason: Diarrhea Last Admin: 03/31/17 11:51 Dose: 1 tab Enoxaparin Sodium (Lovenox) 40 mg SC DAILY [facility] Last Admin: 03/31/17 08:59 Dose: 40 mg Guaifenesin (Mucinex La) 600 mg PO BID [facility] Last Admin: 03/31/17 17:25 Dose: 600 mg Loperamide HCl (Imodium) 2 mg PO Q4 PRN PRN Reason: Diarrhea Losartan Potassium (Cozaar) 50 mg PO DAILY [facility] Last Admin: 03/31/17 15:00 Dose: 50 mg Methylprednisolone (Solu-Medrol) 60 mg IV Q6 [facility] Last Admin: 03/31/17 17:25 Dose: 60 mg Metoprolol Succinate (Toprol Xl) 25 mg PO DAILY [facility] Last Admin: 03/31/17 08:59 Dose: 25 mg Pneumococcal Polyvalent Vaccine (Pneumovax 23 Vaccine) 0.5 ml IM .ONCE ONE Stop: 04/01/17 10:01 Rosuvastatin Calcium (Crestor) 10 mg PO HS [facility] Last Admin: 03/30/17 21:20 Dose: 10 mg - Labs Labs: 03/31/17 06:34 03/31/17 06:34 PT 13.1 SECONDS (9.7-12.2) H 03/29/17 09:16 INR 1.1 03/29/17 09:16 APTT 26 SECONDS (21-34) 03/29/17 09:16 - Head Exam Head Exam: ATRAUMATIC, NORMOCEPHALIC - Eye Exam Eye Exam: Normal appearance - ENT Exam ENT Exam: Mucous Membranes Moist - Neck Exam Neck Exam: Normal Inspection - Respiratory Exam Respiratory Exam: Rhonchi - Cardiovascular Exam Cardiovascular Exam: REGULAR RHYTHM - GI/Abdominal Exam GI & Abdominal Exam: Soft, Normal Bowel Sounds Assessment and Plan (1) COPD exacerbation Assessment & Plan: continue IV steroids Continue nebulizer treatment BiPAP Followup ABG Status: Acute (2) Respiratory distress Status: Acute
[2017-03-31] MEDS ORDERED: Albuterol-Ipratrop 3 mg / 0.5 (3 ml) UD INH STA (21:20)
[2017-03-31] MEDS: Nitroglycerin 2% Ointment Foilpak UD TOP SCH (21:31)
--- NOTE | 2017-03-31 23:41 | CP.PCM.PN ---
Subjective - Date & Time of Evaluation Date of Evaluation: 03/31/17 Time of Evaluation: 18:00 - Subjective Subjective: Pt seen and examined, Objective - Vital Signs/Intake and Output Vital Signs (last 24 hours): Temp Pulse Resp BP Pulse Ox 98.3 F 96 H 18 170/60 H 98 03/31/17 16:08 03/31/17 16:08 03/31/17 16:08 03/31/17 16:08 03/31/17 16:08 Intake and Output: 03/31/17 04/01/17 18:59 06:59 Intake Total 450 Balance 450 - Medications Medications: Current Medications Albuterol/Ipratropium (Duoneb 3 Mg/0.5 Mg (3 Ml) Ud) 3 ml INH RQ6 [facility] Last Admin: 03/31/17 19:17 Dose: 3 ml Amoxicillin/Clavulanate Potassium (Augmentin 500 Mg-125 Mg Tab) 1 tab PO Q12H [facility] Last Admin: 03/31/17 11:56 Dose: 1 tab Aspirin (Aspirin Chewable) 81 mg PO DAILY [facility] Last Admin: 03/31/17 08:59 Dose: 81 mg Diphenoxylate HCl/Atropine (Lomotil 0.025-2.5 Mg Tablet) 1 tab PO Q4 PRN PRN Reason: Diarrhea Last Admin: 03/31/17 11:51 Dose: 1 tab Enoxaparin Sodium (Lovenox) 40 mg SC DAILY [facility] Last Admin: 03/31/17 08:59 Dose: 40 mg Guaifenesin (Mucinex La) 600 mg PO BID [facility] Last Admin: 03/31/17 17:25 Dose: 600 mg Loperamide HCl (Imodium) 2 mg PO Q4 PRN PRN Reason: Diarrhea Losartan Potassium (Cozaar) 100 mg PO DAILY [facility] Methylprednisolone (Solu-Medrol) 60 mg IV Q12 [facility] Last Admin: 03/31/17 21:10 Dose: 60 mg Metoprolol Succinate (Toprol Xl) 25 mg PO DAILY [facility] Last Admin: 03/31/17 08:59 Dose: 25 mg Nitroglycerin (Nitro-Bid 2% Oint) 1 ea TOP Q6 [facility] Last Admin: 03/31/17 21:31 Dose: 1 ea Pneumococcal Polyvalent Vaccine (Pneumovax 23 Vaccine) 0.5 ml IM .ONCE ONE Stop: 04/01/17 10:01 Rosuvastatin Calcium (Crestor) 10 mg PO HS [facility] Last Admin: 03/31/17 21:10 Dose: 10 mg - Labs Labs: 03/31/17 06:34 03/31/17 06:34 PT 13.1 SECONDS (9.7-12.2) H 03/29/17 09:16 INR 1.1 03/29/17 09:16 APTT 26 SECONDS (21-34) 03/29/17 09:16 Assessment and Plan (1) Dyspnea Status: Acute (2) New onset of congestive heart failure Status: Acute (3) Respiratory distress Status: Acute (4) Diarrhea Status: Acute
[2017-04-01] MEDS: Nitroglycerin 2% Ointment Foilpak UD TOP SCH ×4 (01:04→18:46)
[2017-04-01] MEDS: Amoxicillin-Clav 500-125 mg Tab PO SCH ×2 (01:22→12:38)
[2017-04-01] MEDS: Albuterol-Ipratrop 3 mg / 0.5 (3 ml) UD INH SCH ×4 (01:54→19:26)
[2017-04-01] MEDS: guaiFENesin 600 mg ER Tab PO SCH ×2 (09:47→18:43)
[2017-04-01] MEDS: Metoprolol Succinate 25 mg XL Tab PO SCH (09:47)
[2017-04-01] MEDS: Enoxaparin 40 mg Syringe SC SCH (09:47)
[2017-04-01] MEDS ORDERED: Influenza Vaccine 60 mcg/0.5 mL SYR (4YR UP) IM ONE (10:00)
[2017-04-01] MEDS ORDERED: Pneumococcal 23-Valent Vaccine IM ONE (10:00)
--- NOTE | 2017-04-01 12:24 | CP.PCM.PN ---
Subjective - Date & Time of Evaluation Date of Evaluation: 04/01/17 Time of Evaluation: 09:15 - Subjective Subjective: sob present. bp high. on steroids. copd chf. Objective - Vital Signs/Intake and Output Vital Signs (last 24 hours): Temp Pulse Resp BP Pulse Ox 97.7 F 97 H 20 173/107 H 99 04/01/17 07:00 04/01/17 08:09 04/01/17 07:00 04/01/17 07:00 04/01/17 07:00 Intake and Output: 04/01/17 04/01/17 06:59 18:59 Intake Total 120 Balance 120 - Medications Medications: Current Medications Albuterol/Ipratropium (Duoneb 3 Mg/0.5 Mg (3 Ml) Ud) 3 ml INH RQ6 [facility] Last Admin: 04/01/17 08:09 Dose: 3 ml Amlodipine Besylate (Norvasc) 10 mg PO DAILY [facility] Amoxicillin/Clavulanate Potassium (Augmentin 500 Mg-125 Mg Tab) 1 tab PO Q12H [facility] Last Admin: 04/01/17 01:22 Dose: 1 tab Aspirin (Aspirin Chewable) 81 mg PO DAILY [facility] Last Admin: 04/01/17 09:47 Dose: 81 mg Diphenoxylate HCl/Atropine (Lomotil 0.025-2.5 Mg Tablet) 1 tab PO Q4 PRN PRN Reason: Diarrhea Last Admin: 03/31/17 11:51 Dose: 1 tab Enoxaparin Sodium (Lovenox) 40 mg SC DAILY [facility] Last Admin: 04/01/17 09:47 Dose: 40 mg Guaifenesin (Mucinex La) 600 mg PO BID [facility] Last Admin: 04/01/17 09:47 Dose: 600 mg Loperamide HCl (Imodium) 2 mg PO Q4 PRN PRN Reason: Diarrhea Losartan Potassium (Cozaar) 100 mg PO DAILY [facility] Last Admin: 04/01/17 09:47 Dose: 100 mg Methylprednisolone (Solu-Medrol) 60 mg IV Q12 [facility] Last Admin: 04/01/17 10:07 Dose: 60 mg Metoprolol Succinate (Toprol Xl) 25 mg PO DAILY [facility] Last Admin: 04/01/17 09:47 Dose: 25 mg Nitroglycerin (Nitro-Bid 2% Oint) 1 ea TOP Q6 [facility] Last Admin: 04/01/17 12:10 Dose: 1 ea Rosuvastatin Calcium (Crestor) 10 mg PO HS [facility] Last Admin: 03/31/17 21:10 Dose: 10 mg - Labs Labs: 03/31/17 06:34 03/31/17 06:34 PT 13.1 SECONDS (9.7-12.2) H 03/29/17 09:16 INR 1.1 03/29/17 09:16 APTT 26 SECONDS (21-34) 03/29/17 09:16 - Constitutional Appears: Chronically Ill - Eye Exam Eye Exam: PERRL - ENT Exam ENT Exam: Mucous Membranes Moist - Neck Exam Neck Exam: Full ROM, Normal Inspection. absent: Lymphadenopathy - Respiratory Exam Respiratory Exam: Decreased Breath Sounds, NORMAL BREATHING PATTERN - Cardiovascular Exam Cardiovascular Exam: REGULAR RHYTHM, +S1, +S2 - GI/Abdominal Exam GI & Abdominal Exam: Soft, Normal Bowel Sounds - Extremities Exam Extremities Exam: Full ROM, Normal Capillary Refill, Normal Inspection. absent : Joint Swelling, Pedal Edema - Back Exam Back Exam: NORMAL INSPECTION - Neurological Exam Neurological Exam: Alert, Awake, CN II-XII Intact, Normal Gait, Oriented x3 - Psychiatric Exam Psychiatric exam: Normal Affect, Normal Mood Assessment and Plan - Assessment and Plan (Free Text) Assessment: htn chf. copd. Plan: amlodipine added. resp treatment.
--- NOTE | 2017-04-01 14:59 | CARD ---
APPROVED REPORT EXAM: Two-dimensional and M-mode echocardiogram with Doppler and color Doppler. Other Information Quality : GoodRhythm : INDICATION ACS 2D DIMENSIONS IVSd1.1 (0.7-1.1cm)LVDd3.3 (3.9-5.9cm) PWd1.0 (0.7-1.1cm)LVDs2.1 (2.5-4.0cm) FS (%) 35.1 %LVEF (%)65.8 (>50%) M-Mode DIMENSIONS Left Atrium (MM)2.52 (2.5-4.0cm)Aortic Root3.16 (2.2-3.7cm) Aortic Cusp Exc.1.74 (1.5-2.0cm) Aortic Valve AI P 1/2 [id number] Mitral Valve MV E Fkrgztcf71.6cm/sMV A Pjjtuojz509.9cm/sE/A ratio0.6 TDI E/Lateral E'0.0E/Medial E'0.0 Tricuspid Valve TR Peak [id number]/sTR Peak Gr.[id number] LEFT VENTRICLE The left ventricle is normal size. There is normal left ventricular wall thickness. The left ventricular function is normal. The left ventricular ejection fraction is within the normal range. No regional wall motion abnormalities noted. Transmitral Doppler flow pattern is Grade I-abnormal relaxation pattern. No left ventricle thrombus noted on this study. There is no ventricular septal defect visualized. There is no left ventricular aneurysm. There is no mass noted in the left ventricle. RIGHT VENTRICLE The right ventricle is normal size. There is normal right ventricular wall thickness. The right ventricular systolic function is normal. ATRIA The left atrium size is normal. The right atrium size is normal. The interatrial septum is intact with no evidence for an atrial septal defect. AORTIC VALVE The aortic valve is mildly sclerotic. The aortic valve is mildly calcified. There is moderate aortic regurgitation. There is no aortic valvular stenosis. There is no aortic valvular vegetation. MITRAL VALVE Mitral annular calcification is mild. There is no evidence of mitral valve prolapse. There is no mitral valve stenosis. There is no mitral valve regurgitation noted. TRICUSPID VALVE The tricuspid valve is normal in structure and function. There is mild tricuspid regurgitation. There is no tricuspid valve prolapse or vegetation. There is no tricuspid valve stenosis. PULMONIC VALVE NWV There is no pulmonic valvular regurgitation. There is no pulmonic valvular stenosis. GREAT VESSELS The aortic root is normal in size. The ascending aorta is normal in size. The pulmonary artery is normal. The IVC is normal in size and collapses >50% with inspiration. PERICARDIAL EFFUSION The pericardium appears normal. There is no pleural effusion. <Conclusion> The left ventricular ejection fraction is within the normal range. The aortic valve is mildly sclerotic. The aortic valve is mildly calcified. Mitral annular calcification is mild. There is moderate aortic regurgitation. There is mild tricuspid regurgitation.
[2017-04-01] MEDS: Atropine-Diphenoxylate 0.025-2.5 mg Tab PO PRN (18:45)
--- NOTE | 2017-04-01 22:16 | CP.PCM.PN ---
Subjective - Date & Time of Evaluation Date of Evaluation: 04/01/17 Time of Evaluation: 17:00 - Subjective Subjective: Pt seen and eaximed, less short of breath, less wheezing, but her B.P is very high, she is very anxious Objective - Vital Signs/Intake and Output Vital Signs (last 24 hours): Temp Pulse Resp BP Pulse Ox 98.1 F 78 20 160/68 H 95 04/01/17 15:00 04/01/17 16:00 04/01/17 15:00 04/01/17 15:00 04/01/17 15:00 Intake and Output: 04/01/17 04/02/17 18:59 06:59 Intake Total 400 Balance 400 - Medications Medications: Current Medications Albuterol/Ipratropium (Duoneb 3 Mg/0.5 Mg (3 Ml) Ud) 3 ml INH RQ6 [facility] Last Admin: 04/01/17 19:26 Dose: Not Given Amlodipine Besylate (Norvasc) 10 mg PO DAILY [facility] Last Admin: 04/01/17 12:27 Dose: 10 mg Amoxicillin/Clavulanate Potassium (Augmentin 500 Mg-125 Mg Tab) 1 tab PO Q12H [facility] Last Admin: 04/01/17 12:38 Dose: 1 tab Aspirin (Aspirin Chewable) 81 mg PO DAILY [facility] Last Admin: 04/01/17 09:47 Dose: 81 mg Diphenoxylate HCl/Atropine (Lomotil 0.025-2.5 Mg Tablet) 1 tab PO Q4 PRN PRN Reason: Diarrhea Last Admin: 04/01/17 18:45 Dose: 1 tab Enoxaparin Sodium (Lovenox) 40 mg SC DAILY [facility] Last Admin: 04/01/17 09:47 Dose: 40 mg Guaifenesin (Mucinex La) 600 mg PO BID [facility] Last Admin: 04/01/17 18:43 Dose: 600 mg Loperamide HCl (Imodium) 2 mg PO Q4 PRN PRN Reason: Diarrhea Losartan Potassium (Cozaar) 100 mg PO DAILY [facility] Last Admin: 04/01/17 09:47 Dose: 100 mg Methylprednisolone (Solu-Medrol) 60 mg IV DAILY [facility] Metoprolol Succinate (Toprol Xl) 50 mg PO DAILY [facility] Nitroglycerin (Nitro-Bid 2% Oint) 1 ea TOP Q6 [facility] Last Admin: 04/01/17 18:46 Dose: 1 ea Rosuvastatin Calcium (Crestor) 10 mg PO HS [facility] Last Admin: 04/01/17 22:11 Dose: Not Given - Labs Labs: 03/31/17 06:34 03/31/17 06:34 PT 13.1 SECONDS (9.7-12.2) H 03/29/17 09:16 INR 1.1 03/29/17 09:16 APTT 26 SECONDS (21-34) 03/29/17 09:16 - Constitutional Appears: No Acute Distress - Head Exam Head Exam: ATRAUMATIC, NORMAL INSPECTION, NORMOCEPHALIC - Eye Exam Eye Exam: EOMI, Normal appearance, PERRL Pupil Exam: NORMAL ACCOMODATION, PERRL - Respiratory Exam Respiratory Exam: Clear to Ausculation Bilateral, NORMAL BREATHING PATTERN - Cardiovascular Exam Cardiovascular Exam: REGULAR RHYTHM, +S1, +S2. absent: Murmur - GI/Abdominal Exam GI & Abdominal Exam: Soft, Normal Bowel Sounds. absent: Tenderness - Rectal Exam Rectal Exam: Deferred Assessment and Plan (1) Dyspnea Status: Acute (2) New onset of congestive heart failure Status: Acute (3) Respiratory distress Status: Acute (4) Diarrhea Status: Acute - Assessment and Plan (Free Text) Plan: taper steroids B.P monitoring medical optimization
[2017-04-02] MEDS: Amoxicillin-Clav 500-125 mg Tab PO SCH ×2 (00:43→12:37)
[2017-04-02] MEDS: Nitroglycerin 2% Ointment Foilpak UD TOP SCH ×4 (00:43→17:43)
[2017-04-02] MEDS: Albuterol-Ipratrop 3 mg / 0.5 (3 ml) UD INH SCH ×4 (02:05→19:10)
--- NOTE | 2017-04-02 05:17 | CARD ---
APPROVED REPORT EKG Measurement Heart [id number] <Conclusion> Normal sinus rhythm Biatrial enlargement Septal infarct, age undetermined Abnormal ECG
--- NOTE | 2017-04-02 06:05 | CARD ---
APPROVED REPORT EKG Measurement Heart [id number] <Conclusion> Sinus tachycardia Left axis deviation Nonspecific ST and T wave abnormality Prolonged QT Abnormal ECG
[2017-04-02] MEDS: Metoprolol Succinate 50 mg XL Tab PO SCH (10:33)
[2017-04-02] MEDS: guaiFENesin 600 mg ER Tab PO SCH ×2 (10:33→17:43)
[2017-04-02] MEDS: Enoxaparin 40 mg Syringe SC SCH (10:34)
[2017-04-02 12:31] LABS: BASO % 0.2 % (0.0-2.0); EOS # 0.1 K/uL (0.0-0.7); EOS % 1.2 % (0.0-4.0); HEMOGLOBIN 14.5 g/dL (11.0-16.0); LYMPH # 1.8 K/uL (1.0-4.3); LYMPH % 17.9 % (20.0-40.0); MEAN CELL VOLUME 94.2 fL (81.0-99.0); MEAN CORPUSCULAR HEMOGLOBIN 31.5 pg (27.0-31.0); MEAN CORPUSCULAR HGB CONC 33.4 g/dL (33.0-37.0); MEAN PLATELET VOLUME 8.8 fL (7.2-11.7); MONO # 1.6 K/uL (0.0-0.8); MONO % 15.6 % (0.0-10.0); NEUT # 6.7 K/uL (1.8-7.0); NEUT % 65.1 % (50.0-75.0); NRBC % 0.1 % (0.0-2.0); RBC 4.62 Mil/uL (3.80-5.20); RED CELL DISTRIBUTION WIDTH 14.1 % (11.5-14.5); WHITE BLOOD COUNT 10.3 K/uL (4.8-10.8)
--- NOTE | 2017-04-02 12:48 | CP.PCM.PN ---
Subjective - Date & Time of Evaluation Date of Evaluation: 04/02/17 Time of Evaluation: 12:46 - Subjective Subjective: SOB PRESENT. RHONCHI PRESENT. NO CP. BP OK. Objective - Vital Signs/Intake and Output Vital Signs (last 24 hours): Temp Pulse Resp BP Pulse Ox 97.5 F L 97 H 18 145/74 95 04/02/17 08:17 04/02/17 10:00 04/02/17 08:17 04/02/17 08:17 04/02/17 08:17 Intake and Output: 04/02/17 04/02/17 06:59 18:59 Intake Total 240 Balance 240 - Medications Medications: Current Medications Albuterol/Ipratropium (Duoneb 3 Mg/0.5 Mg (3 Ml) Ud) 3 ml INH RQ6 [facility] Last Admin: 04/02/17 07:35 Dose: 3 ml Amlodipine Besylate (Norvasc) 10 mg PO DAILY [facility] Last Admin: 04/02/17 10:33 Dose: 10 mg Amoxicillin/Clavulanate Potassium (Augmentin 500 Mg-125 Mg Tab) 1 tab PO Q12H [facility] Last Admin: 04/02/17 12:37 Dose: 1 tab Aspirin (Aspirin Chewable) 81 mg PO DAILY [facility] Last Admin: 04/02/17 10:33 Dose: 81 mg Diphenoxylate HCl/Atropine (Lomotil 0.025-2.5 Mg Tablet) 1 tab PO Q4 PRN PRN Reason: Diarrhea Last Admin: 04/01/17 18:45 Dose: 1 tab Enoxaparin Sodium (Lovenox) 40 mg SC DAILY [facility] Last Admin: 04/02/17 10:34 Dose: 40 mg Guaifenesin (Mucinex La) 600 mg PO BID [facility] Last Admin: 04/02/17 10:33 Dose: 600 mg Loperamide HCl (Imodium) 2 mg PO Q4 PRN PRN Reason: Diarrhea Losartan Potassium (Cozaar) 100 mg PO DAILY [facility] Last Admin: 04/02/17 10:32 Dose: 100 mg Methylprednisolone (Solu-Medrol) 60 mg IV DAILY [facility] Last Admin: 04/02/17 10:33 Dose: 60 mg Metoprolol Succinate (Toprol Xl) 50 mg PO DAILY [facility] Last Admin: 04/02/17 10:33 Dose: 50 mg Nitroglycerin (Nitro-Bid 2% Oint) 1 ea TOP Q6 [facility] Last Admin: 04/02/17 12:37 Dose: 1 ea Rosuvastatin Calcium (Crestor) 10 mg PO HS [facility] Last Admin: 04/01/17 22:11 Dose: Not Given - Labs Labs: 04/02/17 12:14 03/31/17 06:34 PT 13.1 SECONDS (9.7-12.2) H 03/29/17 09:16 INR 1.1 03/29/17 09:16 APTT 26 SECONDS (21-34) 03/29/17 09:16 - Constitutional Appears: Chronically Ill - Eye Exam Eye Exam: PERRL - ENT Exam ENT Exam: Mucous Membranes Moist, Normal Exam - Neck Exam Neck Exam: Full ROM, Normal Inspection. absent: Lymphadenopathy - Respiratory Exam Respiratory Exam: Decreased Breath Sounds, Rhonchi - Cardiovascular Exam Cardiovascular Exam: REGULAR RHYTHM, +S1, +S2. absent: Murmur - Extremities Exam Extremities Exam: Full ROM, Normal Capillary Refill, Normal Inspection. absent : Joint Swelling, Pedal Edema - Back Exam Back Exam: NORMAL INSPECTION - Neurological Exam Neurological Exam: Alert, Awake, CN II-XII Intact, Normal Gait, Oriented x3 - Psychiatric Exam Psychiatric exam: Normal Affect, Normal Mood Assessment and Plan - Assessment and Plan (Free Text) Assessment: CHF. COPD. HTN. Plan: CT PRESENT TREATMENT.
[2017-04-02 12:56] LABS: CALCIUM 8.5 mg/dl (8.6-10.4); MAGNESIUM 2.1 mg/dL (1.6-2.3)
--- NOTE | 2017-04-02 18:17 | CP.PCM.PN ---
Subjective - Date & Time of Evaluation Date of Evaluation: 04/02/17 Time of Evaluation: 09:40 - Subjective Subjective: The patient seen and examined Patient is off BiPAP Patient states breathing is much better Still has slight cough Afebrile Continue IV steroids Continue nebulizer treatment Continue antibiotics for now Objective - Vital Signs/Intake and Output Vital Signs (last 24 hours): Temp Pulse Resp BP Pulse Ox 98.2 F 86 18 119/66 95 04/02/17 15:00 04/02/17 17:47 04/02/17 15:00 04/02/17 15:00 04/02/17 15:00 Intake and Output: 04/02/17 04/02/17 06:59 18:59 Intake Total 240 Balance 240 - Medications Medications: Current Medications Albuterol/Ipratropium (Duoneb 3 Mg/0.5 Mg (3 Ml) Ud) 3 ml INH RQ6 [facility] Last Admin: 04/02/17 13:28 Dose: Not Given Amlodipine Besylate (Norvasc) 10 mg PO DAILY [facility] Last Admin: 04/02/17 10:33 Dose: 10 mg Amoxicillin/Clavulanate Potassium (Augmentin 500 Mg-125 Mg Tab) 1 tab PO Q12H [facility] Last Admin: 04/02/17 12:37 Dose: 1 tab Aspirin (Aspirin Chewable) 81 mg PO DAILY [facility] Last Admin: 04/02/17 10:33 Dose: 81 mg Diphenoxylate HCl/Atropine (Lomotil 0.025-2.5 Mg Tablet) 1 tab PO Q4 PRN PRN Reason: Diarrhea Last Admin: 04/01/17 18:45 Dose: 1 tab Enoxaparin Sodium (Lovenox) 40 mg SC DAILY [facility] Last Admin: 04/02/17 10:34 Dose: 40 mg Guaifenesin (Mucinex La) 600 mg PO BID [facility] Last Admin: 04/02/17 17:43 Dose: 600 mg Loperamide HCl (Imodium) 2 mg PO Q4 PRN PRN Reason: Diarrhea Losartan Potassium (Cozaar) 100 mg PO DAILY [facility] Last Admin: 04/02/17 10:32 Dose: 100 mg Methylprednisolone (Solu-Medrol) 60 mg IV DAILY [facility] Last Admin: 04/02/17 10:33 Dose: 60 mg Metoprolol Succinate (Toprol Xl) 50 mg PO DAILY [facility] Last Admin: 04/02/17 10:33 Dose: 50 mg Nitroglycerin (Nitro-Bid 2% Oint) 1 ea TOP Q6 [facility] Last Admin: 04/02/17 17:43 Dose: 1 ea Rosuvastatin Calcium (Crestor) 10 mg PO HS [facility] Last Admin: 04/01/17 22:11 Dose: Not Given - Labs Labs: 04/02/17 12:14 04/02/17 12:14 PT 13.1 SECONDS (9.7-12.2) H 03/29/17 09:16 INR 1.1 03/29/17 09:16 APTT 26 SECONDS (21-34) 03/29/17 09:16 Assessment and Plan (1) COPD exacerbation Status: Acute (2) Respiratory distress Status: Acute
--- NOTE | 2017-04-02 22:55 | CP.PCM.PN ---
Subjective - Date & Time of Evaluation Date of Evaluation: 04/02/17 Time of Evaluation: 15:40 - Subjective Subjective: Pt seen and evalauted, pt is less SOB, less cough, less wheezing Objective - Vital Signs/Intake and Output Vital Signs (last 24 hours): Temp Pulse Resp BP Pulse Ox 98.2 F 86 18 119/66 95 04/02/17 15:00 04/02/17 17:47 04/02/17 15:00 04/02/17 15:00 04/02/17 15:00 - Medications Medications: Current Medications Albuterol/Ipratropium (Duoneb 3 Mg/0.5 Mg (3 Ml) Ud) 3 ml INH RQ6 [facility] Last Admin: 04/02/17 19:10 Dose: 3 ml Amlodipine Besylate (Norvasc) 10 mg PO DAILY [facility] Last Admin: 04/02/17 10:33 Dose: 10 mg Amoxicillin/Clavulanate Potassium (Augmentin 500 Mg-125 Mg Tab) 1 tab PO Q12H [facility] Last Admin: 04/02/17 12:37 Dose: 1 tab Aspirin (Aspirin Chewable) 81 mg PO DAILY [facility] Last Admin: 04/02/17 10:33 Dose: 81 mg Diphenoxylate HCl/Atropine (Lomotil 0.025-2.5 Mg Tablet) 1 tab PO Q4 PRN PRN Reason: Diarrhea Last Admin: 04/01/17 18:45 Dose: 1 tab Enoxaparin Sodium (Lovenox) 40 mg SC DAILY [facility] Last Admin: 04/02/17 10:34 Dose: 40 mg Guaifenesin (Mucinex La) 600 mg PO BID [facility] Last Admin: 04/02/17 17:43 Dose: 600 mg Loperamide HCl (Imodium) 2 mg PO Q4 PRN PRN Reason: Diarrhea Losartan Potassium (Cozaar) 100 mg PO DAILY [facility] Last Admin: 04/02/17 10:32 Dose: 100 mg Methylprednisolone (Solu-Medrol) 60 mg IV DAILY [facility] Last Admin: 04/02/17 10:33 Dose: 60 mg Metoprolol Succinate (Toprol Xl) 50 mg PO DAILY [facility] Last Admin: 04/02/17 10:33 Dose: 50 mg Nitroglycerin (Nitro-Bid 2% Oint) 1 ea TOP Q6 [facility] Last Admin: 01/15/18 17:43 Dose: 1 ea Rosuvastatin Calcium (Crestor) 10 mg PO HS [facility] Last Admin: 04/02/17 22:06 Dose: 10 mg - Labs Labs: 04/02/17 12:14 04/02/17 12:14 PT 13.1 SECONDS (9.7-12.2) H 03/29/17 09:16 INR 1.1 03/29/17 09:16 APTT 26 SECONDS (21-34) 03/29/17 09:16 - Constitutional Appears: No Acute Distress - Head Exam Head Exam: ATRAUMATIC, NORMAL INSPECTION, NORMOCEPHALIC - Eye Exam Eye Exam: EOMI, Normal appearance, PERRL Pupil Exam: NORMAL ACCOMODATION, PERRL - Respiratory Exam Respiratory Exam: Decreased Breath Sounds, Rales, Rhonchi - Cardiovascular Exam Cardiovascular Exam: REGULAR RHYTHM, +S1, +S2. absent: Murmur - GI/Abdominal Exam GI & Abdominal Exam: Soft, Normal Bowel Sounds. absent: Tenderness - Rectal Exam Rectal Exam: Deferred Assessment and Plan (1) Dyspnea Status: Acute (2) New onset of congestive heart failure Status: Acute (3) Respiratory distress Status: Acute (4) Diarrhea Status: Acute (5) COPD exacerbation Assessment & Plan: taper steroids Status: Acute (6) HTN (hypertension) Assessment & Plan: B.P control monitoring Status: Acute
[2017-04-03] MEDS: Nitroglycerin 2% Ointment Foilpak UD TOP SCH ×4 (00:44→17:50)
[2017-04-03] MEDS: Amoxicillin-Clav 500-125 mg Tab PO SCH ×2 (00:44→11:46)
[2017-04-03] MEDS: Albuterol-Ipratrop 3 mg / 0.5 (3 ml) UD INH SCH ×4 (01:04→20:03)
[2017-04-03] MEDS: Enoxaparin 40 mg Syringe SC SCH (09:08)
[2017-04-03] MEDS: guaiFENesin 600 mg ER Tab PO SCH ×2 (09:09→17:51)
[2017-04-03] MEDS: Metoprolol Succinate 50 mg XL Tab PO SCH (11:00)
--- NOTE | 2017-04-03 13:07 | CP.PCM.PN ---
Subjective - Date & Time of Evaluation Date of Evaluation: 04/03/17 Time of Evaluation: 13:05 - Subjective Subjective: MILD SOB. IMPROVING. BP OK. COPD. CHF. Objective - Vital Signs/Intake and Output Vital Signs (last 24 hours): Temp Pulse Resp BP Pulse Ox 98.7 F 84 18 179/75 H 98 04/03/17 07:30 04/03/17 11:45 04/03/17 07:30 04/03/17 11:45 04/03/17 07:30 Intake and Output: 04/03/17 04/03/17 06:59 18:59 Intake Total 250 Balance 250 - Medications Medications: Current Medications Albuterol/Ipratropium (Duoneb 3 Mg/0.5 Mg (3 Ml) Ud) 3 ml INH RQ6 [facility] Last Admin: 04/03/17 08:01 Dose: 3 ml Amlodipine Besylate (Norvasc) 10 mg PO DAILY [facility] Last Admin: 04/03/17 09:09 Dose: 10 mg Amoxicillin/Clavulanate Potassium (Augmentin 500 Mg-125 Mg Tab) 1 tab PO Q12H [facility] Last Admin: 04/03/17 11:46 Dose: 1 tab Aspirin (Aspirin Chewable) 81 mg PO DAILY [facility] Last Admin: 04/03/17 09:09 Dose: 81 mg Diphenoxylate HCl/Atropine (Lomotil 0.025-2.5 Mg Tablet) 1 tab PO Q4 PRN PRN Reason: Diarrhea Last Admin: 04/01/17 18:45 Dose: 1 tab Enoxaparin Sodium (Lovenox) 40 mg SC DAILY [facility] Last Admin: 04/03/17 09:08 Dose: 40 mg Guaifenesin (Mucinex La) 600 mg PO BID [facility] Last Admin: 04/03/17 09:09 Dose: 600 mg Loperamide HCl (Imodium) 2 mg PO Q4 PRN PRN Reason: Diarrhea Losartan Potassium (Cozaar) 100 mg PO DAILY [facility] Last Admin: 04/03/17 09:09 Dose: 100 mg Methylprednisolone (Solu-Medrol) 60 mg IV DAILY [facility] Last Admin: 04/03/17 11:00 Dose: 60 mg Metoprolol Succinate (Toprol Xl) 50 mg PO DAILY [facility] Last Admin: 04/03/17 11:00 Dose: 50 mg Nitroglycerin (Nitro-Bid 2% Oint) 1 ea TOP Q6 [facility] Last Admin: 04/03/17 11:46 Dose: 1 ea Rosuvastatin Calcium (Crestor) 10 mg PO HS [facility] Last Admin: 04/02/17 22:06 Dose: 10 mg - Labs Labs: 04/02/17 12:14 04/02/17 12:14 PT 13.1 SECONDS (9.7-12.2) H 03/29/17 09:16 INR 1.1 03/29/17 09:16 APTT 26 SECONDS (21-34) 03/29/17 09:16 - Constitutional Appears: No Acute Distress, Chronically Ill - Eye Exam Pupil Exam: PERRL - ENT Exam ENT Exam: Normal Exam - Respiratory Exam Respiratory Exam: Decreased Breath Sounds, NORMAL BREATHING PATTERN - Cardiovascular Exam Cardiovascular Exam: REGULAR RHYTHM, +S1, +S2. absent: Murmur - GI/Abdominal Exam GI & Abdominal Exam: Soft, Normal Bowel Sounds. absent: Tenderness - Extremities Exam Extremities Exam: Full ROM, Normal Capillary Refill, Normal Inspection. absent : Joint Swelling, Pedal Edema - Back Exam Back Exam: NORMAL INSPECTION - Neurological Exam Neurological Exam: Alert, Awake, CN II-XII Intact, Normal Gait, Oriented x3 Assessment and Plan - Assessment and Plan (Free Text) Assessment: COPD CHF. HTN. Plan: CT RESP TREATMENT.
[2017-04-03] MEDS ORDERED: MethylPREDNISolone 40 mg Vial IV SCH (15:00)
--- NOTE | 2017-04-03 15:43 | CP.PCM.PN ---
Subjective - Date & Time of Evaluation Date of Evaluation: 04/03/17 Time of Evaluation: 09:35 - Subjective Subjective: Patient seen and examined at bedside. She reports that her shortness of breath is much improved from last week. She reports that her cough is improved, unsure of what her sputum looks like. She is off BIPAP, currently on 3L NC. She denies chest pain, palpitations, headache, dizziness, abdominal pain, nausea, vomiting , leg pain. Admits to diarrhea but denies foul odor or presence of blood - she states that she has had diarrhea since her hysterectomy at age 55. Assessment and plan 86 year old female with history of HTN, HLD who was brought in by EMS for respiratory distress, given Ketamine and Nitropaste en route. She came into the ER for complaints of shortness of breath that worsened over past 2 days, but has been going on for 8 months, associated with cough, mild chest pressure, palpitations. Acute exacerbation of COPD On 3L O2 via NC - saturating 98% Continue to monitor O2 sat Afebrile BP elevated, but patient has history of HTN and anxiety 03/29/17 CXR: biapical pleural thickening with upper lobe granulomatous changes, mild venous congestion, bilateral hilar prominence and increased patchy markings at the lung bases. ECHO: The left ventricular ejection fraction is within the normal range. The aortic valve is mildly sclerotic. The aortic valve is mildly calcified. mitral annular calcification is mild. there is moderate aortic regurgitation. there is mild tricuspid regurgitation. ?ABG 03/29: pH 7.45 pCO2 29 pO2 212 HCO3 23.0 BUN elevated 49 Negative for influenza a/b Blood cultures pending ?BNP elevated at 4650 Continue meds: Albuterol/Tiotropium 3cc INH Q6 Augmentin 500mg/125mg 1 tab PO Q12 Mucinex 600mg PO BID Solumedrol 60mg IV Q6 [facility] - Vital Signs/Intake and Output Vital Signs (last 24 hours): Temp Pulse Resp BP Pulse Ox 98.7 F 84 18 179/75 H 98 04/03/17 07:30 04/03/17 11:45 04/03/17 07:30 04/03/17 11:45 04/03/17 07:30 Intake and Output: 04/03/17 04/03/17 06:59 18:59 Intake Total 250 280 Output Total 3 Balance 250 277 - Medications Medications: Current Medications Albuterol/Ipratropium (Duoneb 3 Mg/0.5 Mg (3 Ml) Ud) 3 ml INH RQ6 [facility] Last Admin: 04/03/17 13:30 Dose: 3 ml Amlodipine Besylate (Norvasc) 10 mg PO DAILY [facility] Last Admin: 04/03/17 09:09 Dose: 10 mg Amoxicillin/Clavulanate Potassium (Augmentin 500 Mg-125 Mg Tab) 1 tab PO Q12H [facility] Last Admin: 04/03/17 11:46 Dose: 1 tab Aspirin (Aspirin Chewable) 81 mg PO DAILY [facility] Last Admin: 04/03/17 09:09 Dose: 81 mg Diphenoxylate HCl/Atropine (Lomotil 0.025-2.5 Mg Tablet) 1 tab PO Q4 PRN PRN Reason: Diarrhea Last Admin: 04/01/17 18:45 Dose: 1 tab Enoxaparin Sodium (Lovenox) 40 mg SC DAILY [facility] Last Admin: 04/03/17 09:08 Dose: 40 mg Guaifenesin (Mucinex La) 600 mg PO BID [facility] Last Admin: 04/03/17 09:09 Dose: 600 mg Loperamide HCl (Imodium) 2 mg PO Q4 PRN PRN Reason: Diarrhea Losartan Potassium (Cozaar) 100 mg PO DAILY [facility] Last Admin: 04/03/17 09:09 Dose: 100 mg Methylprednisolone (Solu-Medrol) 40 mg IV BID [facility] Metoprolol Succinate (Toprol Xl) 50 mg PO DAILY [facility] Last Admin: 04/03/17 11:00 Dose: 50 mg Nitroglycerin (Nitro-Bid 2% Oint) 1 ea TOP Q6 [facility] Last Admin: 04/03/17 11:46 Dose: 1 ea Rosuvastatin Calcium (Crestor) 10 mg PO HS [facility] Last Admin: 04/02/17 22:06 Dose: 10 mg - Labs Labs: 04/02/17 12:14 04/02/17 12:14 PT 13.1 SECONDS (9.7-12.2) H 03/29/17 09:16 INR 1.1 03/29/17 09:16 APTT 26 SECONDS (21-34) 03/29/17 09:16 Assessment and Plan (1) COPD exacerbation Status: Acute (2) Respiratory distress Status: Acute
[2017-04-03] MEDS: MethylPREDNISolone 40 mg Vial IV SCH (17:51)
--- NOTE | 2017-04-03 23:57 | CP.PCM.PN ---
Subjective - Date & Time of Evaluation Date of Evaluation: 04/03/17 Time of Evaluation: 19:00 - Subjective Subjective: Pt is seen and examined, less short of breath counselled about quiting or decreasing smoking habbits, afebrile, has sputum production Objective - Vital Signs/Intake and Output Vital Signs (last 24 hours): Temp Pulse Resp BP Pulse Ox 98.2 F 92 H 20 136/73 96 04/03/17 15:56 04/03/17 16:00 04/03/17 15:56 04/03/17 15:56 04/03/17 15:56 Intake and Output: 04/03/17 04/04/17 18:59 06:59 Intake Total 280 320 Output Total 3 Balance 277 320 - Medications Medications: Current Medications Albuterol/Ipratropium (Duoneb 3 Mg/0.5 Mg (3 Ml) Ud) 3 ml INH RQ6 [facility] Last Admin: 04/03/17 20:03 Dose: Not Given Amlodipine Besylate (Norvasc) 10 mg PO DAILY [facility] Last Admin: 04/03/17 09:09 Dose: 10 mg Amoxicillin/Clavulanate Potassium (Augmentin 500 Mg-125 Mg Tab) 1 tab PO Q12H [facility] Last Admin: 04/03/17 11:46 Dose: 1 tab Aspirin (Aspirin Chewable) 81 mg PO DAILY [facility] Last Admin: 04/03/17 09:09 Dose: 81 mg Diphenoxylate HCl/Atropine (Lomotil 0.025-2.5 Mg Tablet) 1 tab PO Q4 PRN PRN Reason: Diarrhea Last Admin: 04/01/17 18:45 Dose: 1 tab Enoxaparin Sodium (Lovenox) 40 mg SC DAILY [facility] Last Admin: 04/03/17 09:08 Dose: 40 mg Guaifenesin (Mucinex La) 600 mg PO BID [facility] Last Admin: 04/03/17 17:51 Dose: 600 mg Loperamide HCl (Imodium) 2 mg PO Q4 PRN PRN Reason: Diarrhea Losartan Potassium (Cozaar) 100 mg PO DAILY [facility] Last Admin: 04/03/17 09:09 Dose: 100 mg Methylprednisolone (Solu-Medrol) 40 mg IV BID [facility] Last Admin: 04/03/17 17:51 Dose: 40 mg Metoprolol Succinate (Toprol Xl) 50 mg PO DAILY [facility] Last Admin: 04/03/17 11:00 Dose: 50 mg Nitroglycerin (Nitro-Bid 2% Oint) 1 ea TOP Q6 [facility] Last Admin: 04/03/17 17:50 Dose: 1 ea Rosuvastatin Calcium (Crestor) 10 mg PO HS [facility] Last Admin: 04/03/17 21:32 Dose: 10 mg - Labs Labs: 04/02/17 12:14 04/02/17 12:14 PT 13.1 SECONDS (9.7-12.2) H 03/29/17 09:16 INR 1.1 03/29/17 09:16 APTT 26 SECONDS (21-34) 03/29/17 09:16 - Constitutional Appears: No Acute Distress - Head Exam Head Exam: ATRAUMATIC, NORMAL INSPECTION, NORMOCEPHALIC - Eye Exam Eye Exam: EOMI, Normal appearance, PERRL Pupil Exam: NORMAL ACCOMODATION, PERRL - Respiratory Exam Respiratory Exam: Decreased Breath Sounds, Rales, Wheezes - Cardiovascular Exam Cardiovascular Exam: REGULAR RHYTHM, +S1, +S2. absent: Murmur Assessment and Plan (1) Dyspnea Status: Acute (2) New onset of congestive heart failure Status: Acute (3) Respiratory distress Status: Acute (4) Diarrhea Status: Acute
[2017-04-04] MEDS: Nitroglycerin 2% Ointment Foilpak UD TOP SCH ×4 (00:42→17:14)
[2017-04-04] MEDS: Amoxicillin-Clav 500-125 mg Tab PO SCH ×2 (00:43→12:04)
[2017-04-04] MEDS: Albuterol-Ipratrop 3 mg / 0.5 (3 ml) UD INH SCH ×4 (01:42→19:34)
[2017-04-04] MEDS: MethylPREDNISolone 40 mg Vial IV SCH ×2 (09:28→17:17)
[2017-04-04] MEDS: guaiFENesin 600 mg ER Tab PO SCH ×2 (09:36→17:14)
[2017-04-04] MEDS: Metoprolol Succinate 50 mg XL Tab PO SCH (09:36)
[2017-04-04] MEDS: Enoxaparin 40 mg Syringe SC SCH (09:40)
--- NOTE | 2017-04-04 11:56 | CP.PCM.PN ---
Subjective - Date & Time of Evaluation Date of Evaluation: 04/04/17 Time of Evaluation: 11:54 - Subjective Subjective: SOB DOWN. NO CP. BP CONTROLLED. Objective - Vital Signs/Intake and Output Vital Signs (last 24 hours): Temp Pulse Resp BP Pulse Ox 98.0 F 82 20 151/69 H 95 04/04/17 07:25 04/04/17 07:25 04/04/17 07:25 04/04/17 07:25 04/04/17 07:25 Intake and Output: 04/04/17 04/04/17 06:59 18:59 Intake Total 440 Balance 440 - Medications Medications: Current Medications Albuterol/Ipratropium (Duoneb 3 Mg/0.5 Mg (3 Ml) Ud) 3 ml INH RQ6 [facility] Last Admin: 04/04/17 07:47 Dose: 3 ml Amlodipine Besylate (Norvasc) 10 mg PO DAILY [facility] Last Admin: 04/04/17 09:36 Dose: 10 mg Amoxicillin/Clavulanate Potassium (Augmentin 500 Mg-125 Mg Tab) 1 tab PO Q12H [facility] Last Admin: 04/04/17 00:43 Dose: 1 tab Aspirin (Aspirin Chewable) 81 mg PO DAILY [facility] Last Admin: 04/04/17 09:36 Dose: 81 mg Diphenoxylate HCl/Atropine (Lomotil 0.025-2.5 Mg Tablet) 1 tab PO Q4 PRN PRN Reason: Diarrhea Last Admin: 04/01/17 18:45 Dose: 1 tab Enoxaparin Sodium (Lovenox) 40 mg SC DAILY [facility] Last Admin: 04/04/17 09:40 Dose: Not Given Guaifenesin (Mucinex La) 600 mg PO BID [facility] Last Admin: 04/04/17 09:36 Dose: 600 mg Loperamide HCl (Imodium) 2 mg PO Q4 PRN PRN Reason: Diarrhea Losartan Potassium (Cozaar) 100 mg PO DAILY [facility] Last Admin: 04/04/17 09:35 Dose: 100 mg Methylprednisolone (Solu-Medrol) 40 mg IV BID [facility] Last Admin: 04/04/17 09:28 Dose: 40 mg Metoprolol Succinate (Toprol Xl) 50 mg PO DAILY [facility] Last Admin: 04/04/17 09:36 Dose: 50 mg Nitroglycerin (Nitro-Bid 2% Oint) 1 ea TOP Q6 [facility] Last Admin: 04/04/17 06:01 Dose: 1 ea Rosuvastatin Calcium (Crestor) 10 mg PO HS [facility] Last Admin: 04/03/17 21:32 Dose: 10 mg - Labs Labs: 04/02/17 12:14 04/02/17 12:14 PT 13.1 SECONDS (9.7-12.2) H 03/29/17 09:16 INR 1.1 03/29/17 09:16 APTT 26 SECONDS (21-34) 03/29/17 09:16 - Constitutional Appears: Chronically Ill - Eye Exam Eye Exam: PERRL - ENT Exam ENT Exam: Normal Exam - Respiratory Exam Respiratory Exam: Decreased Breath Sounds, Rhonchi, Wheezes, NORMAL BREATHING PATTERN - Cardiovascular Exam Cardiovascular Exam: REGULAR RHYTHM, +S1, +S2 - GI/Abdominal Exam GI & Abdominal Exam: Soft, Normal Bowel Sounds - Extremities Exam Extremities Exam: Full ROM, Normal Capillary Refill, Normal Inspection. absent : Joint Swelling, Pedal Edema - Back Exam Back Exam: NORMAL INSPECTION Assessment and Plan - Assessment and Plan (Free Text) Assessment: CHF COPD. Plan: CT PRESENT TREATMENT.
--- NOTE | 2017-04-04 15:41 | CP.PCM.PN ---
Subjective - Date & Time of Evaluation Date of Evaluation: 04/04/17 Time of Evaluation: 10:00 - Subjective Subjective: Patient seen and examined at bedside. She reports that she is feeling better, but states she is not ready to go home. She states she does not feel short of breath anymore. Reports that her cough is loosening up and she has been able to expectorate white nonbloody sputum. She is currently off nasal cannula, on room air only. She states her appetite has improved and has been drinking lots of hot fluids. She denies chest pain, abdominal pain, fever, chills, leg pain. Admits to diarrhea but denies foul odor or presence of blood - she states that she has had diarrhea since her hysterectomy at age 55. Assessment and plan 86 year old female with history of HTN, HLD who was brought in by EMS for respiratory distress, given Ketamine and Nitropaste en route. She came into the ER for complaints of shortness of breath that worsened over past 2 days, but has been going on for 8 months, associated with cough, mild chest pressure, palpitations. Acute exacerbation of COPD On Room Air - saturating 95% Continue to monitor O2 sat Afebrile BP elevated, but patient has history of HTN 03/29/17 CXR: biapical pleural thickening with upper lobe granulomatous changes, mild venous congestion, bilateral hilar prominence and increased patchy markings at the lung bases. ECHO: The left ventricular ejection fraction is within the normal range. The aortic valve is mildly sclerotic. The aortic valve is mildly calcified. mitral annular calcification is mild. there is moderate aortic regurgitation. there is mild tricuspid regurgitation. ?ABG 03/29: pH 7.45 pCO2 29 pO2 212 HCO3 23.0 BUN elevated 49 Negative for influenza a/b Blood cultures negative ?BNP elevated at 4650 Continue meds: Albuterol/Tiotropium 3cc INH Q6 Augmentin 500mg/125mg 1 tab PO Q12 Mucinex 600mg PO BID Solumedrol 40mg IV BID Objective - Vital Signs/Intake and Output Vital Signs (last 24 hours): Temp Pulse Resp BP Pulse Ox 98.0 F 99 H 20 192/76 H 95 04/04/17 07:25 04/04/17 13:01 04/04/17 07:25 04/04/17 13:01 04/04/17 07:25 Intake and Output: 04/04/17 04/04/17 06:59 18:59 Intake Total 440 Balance 440 - Medications Medications: Current Medications Albuterol/Ipratropium (Duoneb 3 Mg/0.5 Mg (3 Ml) Ud) 3 ml INH RQ6 [facility] Last Admin: 04/04/17 13:53 Dose: 3 ml Amlodipine Besylate (Norvasc) 10 mg PO DAILY [facility] Last Admin: 04/04/17 09:36 Dose: 10 mg Amoxicillin/Clavulanate Potassium (Augmentin 500 Mg-125 Mg Tab) 1 tab PO Q12H [facility] Last Admin: 04/04/17 12:04 Dose: 1 tab Aspirin (Aspirin Chewable) 81 mg PO DAILY [facility] Last Admin: 04/04/17 09:36 Dose: 81 mg Diphenoxylate HCl/Atropine (Lomotil 0.025-2.5 Mg Tablet) 1 tab PO Q4 PRN PRN Reason: Diarrhea Last Admin: 04/01/17 18:45 Dose: 1 tab Enoxaparin Sodium (Lovenox) 40 mg SC DAILY [facility] Last Admin: 04/04/17 09:40 Dose: Not Given Guaifenesin (Mucinex La) 600 mg PO BID [facility] Last Admin: 04/04/17 09:36 Dose: 600 mg Loperamide HCl (Imodium) 2 mg PO Q4 PRN PRN Reason: Diarrhea Losartan Potassium (Cozaar) 100 mg PO DAILY [facility] Last Admin: 04/04/17 09:35 Dose: 100 mg Methylprednisolone (Solu-Medrol) 40 mg IV BID [facility] Last Admin: 04/04/17 09:28 Dose: 40 mg Metoprolol Succinate (Toprol Xl) 50 mg PO DAILY [facility] Last Admin: 04/04/17 09:36 Dose: 50 mg Nitroglycerin (Nitro-Bid 2% Oint) 1 ea TOP Q6 [facility] Last Admin: 04/04/17 13:00 Dose: 1 ea Rosuvastatin Calcium (Crestor) 10 mg PO HS [facility] Last Admin: 04/03/17 21:32 Dose: 10 mg - Labs Labs: 04/02/17 12:14 04/02/17 12:14 PT 13.1 SECONDS (9.7-12.2) H 03/29/17 09:16 INR 1.1 03/29/17 09:16 APTT 26 SECONDS (21-34) 03/29/17 09:16 Assessment and Plan (1) COPD exacerbation Status: Acute (2) Respiratory distress Status: Acute
--- NOTE | 2017-04-04 22:43 | CP.PCM.PN ---
Subjective - Date & Time of Evaluation Date of Evaluation: 04/04/17 Time of Evaluation: 18:40 - Subjective Subjective: Pt seen and examined, less short of breath, afebrile Objective - Vital Signs/Intake and Output Vital Signs (last 24 hours): Temp Pulse Resp BP Pulse Ox 98.1 F 90 20 120/66 98 04/04/17 15:00 04/04/17 15:00 04/04/17 15:00 04/04/17 15:00 04/04/17 15:00 - Medications Medications: Current Medications Albuterol/Ipratropium (Duoneb 3 Mg/0.5 Mg (3 Ml) Ud) 3 ml INH RQ6 [facility] Last Admin: 04/04/17 19:34 Dose: 3 ml Amlodipine Besylate (Norvasc) 10 mg PO DAILY [facility] Last Admin: 04/04/17 09:36 Dose: 10 mg Amoxicillin/Clavulanate Potassium (Augmentin 500 Mg-125 Mg Tab) 1 tab PO Q12H [facility] Last Admin: 04/04/17 12:04 Dose: 1 tab Aspirin (Aspirin Chewable) 81 mg PO DAILY [facility] Last Admin: 04/04/17 09:36 Dose: 81 mg Diphenoxylate HCl/Atropine (Lomotil 0.025-2.5 Mg Tablet) 1 tab PO Q4 PRN PRN Reason: Diarrhea Last Admin: 04/01/17 18:45 Dose: 1 tab Enoxaparin Sodium (Lovenox) 40 mg SC DAILY [facility] Last Admin: 04/04/17 09:40 Dose: Not Given Guaifenesin (Mucinex La) 600 mg PO BID [facility] Last Admin: 04/04/17 17:14 Dose: 600 mg Loperamide HCl (Imodium) 2 mg PO Q4 PRN PRN Reason: Diarrhea Losartan Potassium (Cozaar) 100 mg PO DAILY [facility] Last Admin: 04/04/17 09:35 Dose: 100 mg Methylprednisolone (Solu-Medrol) 40 mg IV BID [facility] Last Admin: 04/04/17 17:17 Dose: 40 mg Metoprolol Succinate (Toprol Xl) 50 mg PO DAILY [facility] Last Admin: 04/04/17 09:36 Dose: 50 mg Nitroglycerin (Nitro-Bid 2% Oint) 1 ea TOP Q6 [facility] Last Admin: 04/04/17 17:14 Dose: 1 ea Rosuvastatin Calcium (Crestor) 10 mg PO HS [facility] Last Admin: 04/04/17 22:19 Dose: Not Given - Labs Labs: 04/02/17 12:14 04/02/17 12:14 PT 13.1 SECONDS (9.7-12.2) H 03/29/17 09:16 INR 1.1 03/29/17 09:16 APTT 26 SECONDS (21-34) 03/29/17 09:16 - Constitutional Appears: No Acute Distress - Head Exam Head Exam: ATRAUMATIC, NORMAL INSPECTION, NORMOCEPHALIC - Eye Exam Eye Exam: EOMI, Normal appearance, PERRL Pupil Exam: NORMAL ACCOMODATION, PERRL - Respiratory Exam Respiratory Exam: Decreased Breath Sounds, Rales, Rhonchi - Cardiovascular Exam Cardiovascular Exam: REGULAR RHYTHM, +S1, +S2. absent: Murmur - GI/Abdominal Exam GI & Abdominal Exam: Soft, Normal Bowel Sounds. absent: Tenderness Assessment and Plan (1) Dyspnea Status: Acute (2) New onset of congestive heart failure Status: Acute (3) Respiratory distress Status: Acute (4) Diarrhea Status: Acute
[2017-04-05] MEDS: Nitroglycerin 2% Ointment Foilpak UD TOP SCH ×3 (00:47→13:17)
[2017-04-05] MEDS: Amoxicillin-Clav 500-125 mg Tab PO SCH ×2 (00:47→13:17)
[2017-04-05 01:36] VITALS: O2SAT 97
[2017-04-05] MEDS: Albuterol-Ipratrop 3 mg / 0.5 (3 ml) UD INH SCH ×3 (02:33→14:13)
[2017-04-05 09:17] VITALS: BP 150/67; PULSE 77; RESP 18; TEMP 97.5
[2017-04-05] MEDS: MethylPREDNISolone 40 mg Vial IV SCH (09:49)
[2017-04-05] MEDS: guaiFENesin 600 mg ER Tab PO SCH (09:49)
[2017-04-05] MEDS: Metoprolol Succinate 50 mg XL Tab PO SCH (09:49)
[2017-04-05] MEDS: Enoxaparin 40 mg Syringe SC SCH (09:50)
--- NOTE | 2017-04-05 12:47 | CP.PCM.PN ---
Subjective - Date & Time of Evaluation Date of Evaluation: 04/05/17 Time of Evaluation: 10:40 - Subjective Subjective: Patient seen and examined today, states sob and congestion improved , denies any chest pain, headache, dizziness , palpitations oob ambulating without sob spo2 94% Objective - Vital Signs/Intake and Output Vital Signs (last 24 hours): Temp Pulse Resp BP Pulse Ox 97.5 F L 77 18 150/67 97 04/05/17 09:15 04/05/17 09:15 04/05/17 09:15 04/05/17 09:15 04/05/17 09:15 Intake and Output: 04/05/17 04/05/17 06:59 18:59 Intake Total 400 Balance 400 - Medications Medications: Current Medications Albuterol/Ipratropium (Duoneb 3 Mg/0.5 Mg (3 Ml) Ud) 3 ml INH RQ6 [facility] Last Admin: 04/05/17 08:02 Dose: 3 ml Amlodipine Besylate (Norvasc) 10 mg PO DAILY [facility] Last Admin: 04/05/17 09:49 Dose: 10 mg Amoxicillin/Clavulanate Potassium (Augmentin 500 Mg-125 Mg Tab) 1 tab PO Q12H [facility] Last Admin: 04/05/17 00:47 Dose: 1 tab Aspirin (Aspirin Chewable) 81 mg PO DAILY [facility] Last Admin: 04/05/17 09:49 Dose: 81 mg Diphenoxylate HCl/Atropine (Lomotil 0.025-2.5 Mg Tablet) 1 tab PO Q4 PRN PRN Reason: Diarrhea Last Admin: 04/01/17 18:45 Dose: 1 tab Enoxaparin Sodium (Lovenox) 40 mg SC DAILY [facility] Last Admin: 04/05/17 09:50 Dose: Not Given Guaifenesin (Mucinex La) 600 mg PO BID [facility] Last Admin: 04/05/17 09:49 Dose: 600 mg Loperamide HCl (Imodium) 2 mg PO Q4 PRN PRN Reason: Diarrhea Losartan Potassium (Cozaar) 100 mg PO DAILY [facility] Last Admin: 04/05/17 09:48 Dose: 100 mg Methylprednisolone (Solu-Medrol) 40 mg IV BID [facility] Last Admin: 04/05/17 09:49 Dose: 40 mg Metoprolol Succinate (Toprol Xl) 50 mg PO DAILY [facility] Last Admin: 04/05/17 09:49 Dose: 50 mg Nitroglycerin (Nitro-Bid 2% Oint) 1 ea TOP Q6 [facility] Last Admin: 04/05/17 05:56 Dose: 1 ea Rosuvastatin Calcium (Crestor) 10 mg PO HS [facility] Last Admin: 04/04/17 22:19 Dose: Not Given - Labs Labs: 04/02/17 12:14 04/02/17 12:14 PT 13.1 SECONDS (9.7-12.2) H 03/29/17 09:16 INR 1.1 03/29/17 09:16 APTT 26 SECONDS (21-34) 03/29/17 09:16 - Constitutional Appears: Well, No Acute Distress - Respiratory Exam Respiratory Exam: Rhonchi, NORMAL BREATHING PATTERN - Cardiovascular Exam Cardiovascular Exam: REGULAR RHYTHM, +S1, +S2 - Neurological Exam Neurological Exam: Alert, Awake, Oriented x3 Assessment and Plan - Assessment and Plan (Free Text) Assessment: A/P 86 yr old female admitted with exc. COPD/New onset of congestive heart failure, / Dyspnea, /Respiratory distress Patient clinically improved with steroids seen by Dr. Urias, cleared fro discharge from pulmonary standpoint D/W Dr. Cortes, stable for discharge home today Discharge plan discussed with patient who understands and agrees with plan Patient instructed to returns to ed if symptoms recurs
--- NOTE | 2017-04-05 13:22 | PCM.HF ---
Heart Failure Core Measure - Heart Failure Ejection Fraction: 40 % or Greater SLIM Inhibitor Prescribed: No Contraindication/Reason for not providing: on arb Beta-Antonio Prescribed: Metoprolol Succinate Angiotensin II Receptor Antonio Prescribed: Yes AnticoagulationTherapy for Atrial Fibrillation/Atrialflutter: No Contraindication/Reason for not providing: no hx of a ifb Aldosterone Antagonist Prescribed: No Contraindication/Reason for not providing: ef.45 Hydralazine Nitrate Prescribed: No Contraindication/Reason for not providing: ef>45/ on calcium channel antonio Implantable Cardioverter Defibrillator Therapy: No Contraindication/Reason for not providing: ef>45 Cardiac Resynchronization Therapy Prescribed: No Contraindication/Reason for not providing: ef>45 - Follow up Will be discharged to: Home Follow Up Date (must be within 7 days from discharge): 04/09/17 Follow Up Time: 09:00
--- NOTE | 2017-04-05 13:27 | CP.PCM.PN ---
Subjective - Date & Time of Evaluation Date of Evaluation: 04/05/17 Time of Evaluation: 13:25 - Subjective Subjective: CONDITION IMPROVING. AMBULATING, PULSE OX 92%. BP OK. Objective - Vital Signs/Intake and Output Vital Signs (last 24 hours): Temp Pulse Resp BP Pulse Ox 97.5 F L 77 18 150/67 97 04/05/17 09:15 04/05/17 09:15 04/05/17 09:15 04/05/17 09:15 04/05/17 09:15 Intake and Output: 04/05/17 04/05/17 06:59 18:59 Intake Total 400 Balance 400 - Medications Medications: Current Medications Albuterol/Ipratropium (Duoneb 3 Mg/0.5 Mg (3 Ml) Ud) 3 ml INH RQ6 [facility] Last Admin: 04/05/17 08:02 Dose: 3 ml Amlodipine Besylate (Norvasc) 10 mg PO DAILY [facility] Last Admin: 04/05/17 09:49 Dose: 10 mg Amoxicillin/Clavulanate Potassium (Augmentin 500 Mg-125 Mg Tab) 1 tab PO Q12H [facility] Last Admin: 04/05/17 13:17 Dose: 1 tab Aspirin (Aspirin Chewable) 81 mg PO DAILY [facility] Last Admin: 04/05/17 09:49 Dose: 81 mg Diphenoxylate HCl/Atropine (Lomotil 0.025-2.5 Mg Tablet) 1 tab PO Q4 PRN PRN Reason: Diarrhea Last Admin: 04/01/17 18:45 Dose: 1 tab Enoxaparin Sodium (Lovenox) 40 mg SC DAILY [facility] Last Admin: 04/05/17 09:50 Dose: Not Given Guaifenesin (Mucinex La) 600 mg PO BID [facility] Last Admin: 04/05/17 09:49 Dose: 600 mg Loperamide HCl (Imodium) 2 mg PO Q4 PRN PRN Reason: Diarrhea Losartan Potassium (Cozaar) 100 mg PO DAILY [facility] Last Admin: 04/05/17 09:48 Dose: 100 mg Methylprednisolone (Solu-Medrol) 40 mg IV BID [facility] Last Admin: 04/05/17 09:49 Dose: 40 mg Metoprolol Succinate (Toprol Xl) 50 mg PO DAILY [facility] Last Admin: 04/05/17 09:49 Dose: 50 mg Nitroglycerin (Nitro-Bid 2% Oint) 1 ea TOP Q6 [facility] Last Admin: 04/05/17 13:17 Dose: 1 ea Rosuvastatin Calcium (Crestor) 10 mg PO HS [facility] Last Admin: 04/04/17 22:19 Dose: Not Given - Labs Labs: 04/02/17 12:14 04/02/17 12:14 PT 13.1 SECONDS (9.7-12.2) H 03/29/17 09:16 INR 1.1 03/29/17 09:16 APTT 26 SECONDS (21-34) 03/29/17 09:16 - Constitutional Appears: No Acute Distress, Chronically Ill - Eye Exam Pupil Exam: NORMAL ACCOMODATION, PERRL - ENT Exam ENT Exam: Mucous Membranes Moist, Normal Exam - Neck Exam Neck Exam: Full ROM, Normal Inspection. absent: Lymphadenopathy - Respiratory Exam Respiratory Exam: Decreased Breath Sounds, NORMAL BREATHING PATTERN - Cardiovascular Exam Cardiovascular Exam: REGULAR RHYTHM, +S1, +S2 - GI/Abdominal Exam GI & Abdominal Exam: Soft, Normal Bowel Sounds - Extremities Exam Extremities Exam: Full ROM, Normal Capillary Refill, Normal Inspection. absent : Joint Swelling, Pedal Edema - Back Exam Back Exam: NORMAL INSPECTION - Neurological Exam Neurological Exam: Alert, Awake, CN II-XII Intact, Normal Gait, Oriented x3 Assessment and Plan - Assessment and Plan (Free Text) Assessment: CHF. COPD. Plan: OK FOR D/C HOME.
--- NOTE | 2017-04-05 17:00 | CP.PCM.PN ---
Subjective - Date & Time of Evaluation Date of Evaluation: 04/05/17 Time of Evaluation: 07:40 - Subjective Subjective: Patient seen and examined at bedside. She reports that she is feeling better and does not feel short of breath anymore. Reports that her cough is better and she has been able to expectorate white yellow nonbloody sputum. She is currently off nasal cannula, on room air only. She states her appetite has improved. She denies chest pain, abdominal pain, fever, chills, leg pain. Admits to diarrhea but denies foul odor or presence of blood - she states that she has had diarrhea since her hysterectomy at age 55. Assessment and plan 86 year old female with history of HTN, HLD who was brought in by EMS for respiratory distress, given Ketamine and Nitropaste en route. She came into the ER for complaints of shortness of breath that worsened over past 2 days, but has been going on for 8 months, associated with cough, mild chest pressure, palpitations. Acute exacerbation of COPD On Room Air - saturating 97% Continue to monitor O2 sat Afebrile BP elevated, but patient has history of HTN 03/29/17 CXR: biapical pleural thickening with upper lobe granulomatous changes, mild venous congestion, bilateral hilar prominence and increased patchy markings at the lung bases. ECHO: The left ventricular ejection fraction is within the normal range. The aortic valve is mildly sclerotic. The aortic valve is mildly calcified. mitral annular calcification is mild. there is moderate aortic regurgitation. there is mild tricuspid regurgitation. ABG 03/29: pH 7.45 pCO2 29 pO2 212 HCO3 23.0 BUN elevated 49 Negative for influenza a/b Blood cultures negative BNP elevated at 4650 Continue meds: Albuterol/Tiotropium 3cc INH Q6 Augmentin 500mg/125mg 1 tab PO Q12 Mucinex 600mg PO BID Switch to Prednisone PO LAMA/LABA combination recommended. Objective - Vital Signs/Intake and Output Vital Signs (last 24 hours): Temp Pulse Resp BP Pulse Ox 97.5 F L 77 18 150/67 97 04/05/17 09:15 04/05/17 09:15 04/05/17 09:15 04/05/17 09:15 04/05/17 09:15 Intake and Output: 04/05/17 04/05/17 06:59 18:59 Intake Total 400 100 Balance 400 100 - Labs Labs: 04/02/17 12:14 04/02/17 12:14 PT 13.1 SECONDS (9.7-12.2) H 03/29/17 09:16 INR 1.1 03/29/17 09:16 APTT 26 SECONDS (21-34) 03/29/17 09:16 Assessment and Plan (1) COPD exacerbation Status: Acute (2) Respiratory distress Status: Acute
--- NOTE | 2017-04-05 21:13 | CP.PCM.DIS ---
Provider - Provider Date of Admission: 03/29/17 10:46 Attending physician: Jorge A Cortes MD Diagnosis - Discharge Diagnosis (1) Dyspnea Status: Acute (2) New onset of congestive heart failure Status: Acute (3) Respiratory distress Status: Acute (4) Diarrhea Status: Acute Hospital Course - Lab Results Lab Results: Micro Results 03/29/17 09:04 Blood Blood Culture - Final NO GROWTH AFTER 5 DAYS 03/29/17 09:04 Blood Gram Stain - Final TEST NOT PERFORMED 03/29/17 09:04 Blood Blood Culture - Final NO GROWTH AFTER 5 DAYS 03/29/17 09:04 Blood Gram Stain - Final TEST NOT PERFORMED Most Recent Lab Values WBC 10.3 K/uL (4.8-10.8) 04/02/17 12:14 RBC 4.62 Mil/uL (3.80-5.20) 04/02/17 12:14 Hgb 14.5 g/dL (11.0-16.0) 04/02/17 12:14 Hct 43.5 % (34.0-47.0) 04/02/17 12:14 MCV 94.2 fL (81.0-99.0) 04/02/17 12:14 MCH 31.5 pg (27.0-31.0) H 04/02/17 12:14 MCHC 33.4 g/dL (33.0-37.0) 04/02/17 12:14 RDW 14.1 % (11.5-14.5) 04/02/17 12:14 Plt Count 328 K/uL (130-400) 04/02/17 12:14 MPV 8.8 fL (7.2-11.7) 04/02/17 12:14 Neut % (Auto) 65.1 % (50.0-75.0) 04/02/17 12:14 Lymph % (Auto) 17.9 % (20.0-40.0) L 04/02/17 12:14 [place] % (Auto) 15.6 % (0.0-10.0) H 04/02/17 12:14 Eos % (Auto) 1.2 % (0.0-4.0) 04/02/17 12:14 Baso % (Auto) 0.2 % (0.0-2.0) 04/02/17 12:14 Neut # 6.7 K/uL (1.8-7.0) 04/02/17 12:14 Lymph # 1.8 K/uL (1.0-4.3) 04/02/17 12:14 [place] # 1.6 K/uL (0.0-0.8) H 04/02/17 12:14 Eos # 0.1 K/uL (0.0-0.7) 04/02/17 12:14 Baso # 0.0 K/uL (0.0-0.2) 04/02/17 12:14 Neutrophils % (Manual) 90 % (50-75) H 03/29/17 09:16 Lymphocytes % (Manual) 4 % (20-40) L 03/29/17 09:16 Monocytes % (Manual) 6 % (0-10) 03/29/17 09:16 Platelet Estimate Normal (NORMAL) 03/29/17 09:16 RBC Morphology Normal 03/29/17 09:16 PT 13.1 SECONDS (9.7-12.2) H 03/29/17 09:16 INR 1.1 03/29/17 09:16 APTT 26 SECONDS (21-34) 03/29/17 09:16 Puncture Site Lra 03/29/17 09:54 pCO2 29 mm/Hg (35-45) L 03/29/17 09:54 pO2 212 mm/Hg (80-100) H 03/29/17 09:54 HCO3 23.0 mmol/L (21-28) 03/29/17 09:54 ABG pH 7.45 (7.35-7.45) 03/29/17 09:54 ABG Total CO2 21.1 mmol/L (22-28) L 03/29/17 09:54 ABG O2 Saturation 97.9 % (95-98) 03/29/17 09:54 ABG Base Excess -2.6 mmol/L (-2.0-3.0) L 03/29/17 09:54 Eliseo Test Pos 03/29/17 09:54 ABG Potassium 3.4 mmol/L (3.6-5.2) L 03/29/17 09:54 VBG pH 7.38 (7.32-7.43) 03/29/17 09:22 VBG pCO2 37 mmHg (40-60) L 03/29/17 09:22 VBG HCO3 22.5 mmol/L 03/29/17 09:22 VBG Total CO2 23.0 mmol/L (22-28) 03/29/17 09:22 VBG O2 Sat (Calc) 90.4 % (40-65) H 03/29/17 09:22 VBG Base Excess -2.8 mmol/L (0.0-2.0) L 03/29/17 09:22 VBG Potassium 5.6 mmol/L (3.6-5.2) H 03/29/17 09:22 A-a O2 Difference 108.0 mm/Hg 03/29/17 09:54 Respiratory Index 0.5 03/29/17 09:54 Sodium 138.0 mmol/l (132-148) 03/29/17 09:54 Chloride 108.0 mmol/L (98-107) H 03/29/17 09:54 Glucose 145 mg/dl (65-105) H 03/29/17 09:54 Lactate 1.0 mmol/L (0.7-2.1) 03/29/17 09:54 Vent Mode Bipap 03/29/17 09:54 FiO2 50.0 % 03/29/17 09:54 Inspiratory BiPAP 12 03/29/17 09:54 Expiratory BiPAP 6 03/29/17 09:54 Sodium 133 mmol/L (132-148) 04/02/17 12:14 Potassium 3.9 mmol/L (3.6-5.2) 04/02/17 12:14 Chloride 101 mmol/L (98-107) 04/02/17 12:14 Carbon Dioxide 24 mmol/L (22-30) 04/02/17 12:14 Anion Gap 12 (10-20) 04/02/17 12:14 BUN 49 mg/dL (7-17) H 04/02/17 12:14 Creatinine 1.1 mg/dL (0.7-1.2) 04/02/17 12:14 Est GFR ( Amer) 57 04/02/17 12:14 Est GFR (Non-Af Amer) 47 04/02/17 12:14 Random Glucose 119 mg/dL (65-105) H 04/02/17 12:14 Calcium 8.5 mg/dl (8.6-10.4) L 04/02/17 12:14 Magnesium 2.1 mg/dL (1.6-2.3) 04/02/17 12:14 Total Bilirubin 0.9 mg/dL (0.2-1.3) 03/29/17 09:16 AST 31 U/L (14-36) 03/29/17 09:16 ALT 15 U/L (9-52) 03/29/17 09:16 Alkaline Phosphatase 67 U/L (38-126) 03/29/17 09:16 Total Creatine Kinase 106 U/L (30-135) 03/29/17 15:46 CK-MB (Mass) 1.54 ng/mL (0.0-3.38) 03/29/17 15:46 Troponin I 0.0840 ng/mL (0.00-0.120) 03/29/17 15:46 NT-Pro-B Natriuret Pep 4650 pg/mL (0-900) H 03/29/17 09:16 Total Protein 8.5 g/dL (6.3-8.3) H 03/29/17 09:16 Albumin 4.4 g/dL (3.5-5.0) 03/29/17 09:16 Globulin 4.0 gm/dL (2.2-3.9) H 03/29/17 09:16 Albumin/Globulin Ratio 1.1 (1.0-2.1) 03/29/17 09:16 Arterial Blood Potassium 3.4 mmol/L (3.6-5.2) L 03/29/17 09:54 Venous Blood Potassium 5.6 mmol/L (3.6-5.2) H 03/29/17 09:22 Urine Color Yellow (YELLOW) 03/29/17 12:18 Urine Clarity Clear (Clear) 03/29/17 12:18 Urine pH 5.0 (5.0-8.0) 03/29/17 12:18 Ur Specific [place] 1.010 (1.003-1.030) 03/29/17 12:18 Urine Protein 2+ mg/dL (NEGATIVE) H 03/29/17 12:18 Urine Glucose (UA) Normal mg/dL (Normal) 03/29/17 12:18 Urine Ketones Negative mg/dL (NEGATIVE) 03/29/17 12:18 Urine Blood 2+ (NEGATIVE) H 03/29/17 12:18 Urine Nitrate Negative (NEGATIVE) 03/29/17 12:18 Urine Bilirubin Negative (NEGATIVE) 03/29/17 12:18 Urine Urobilinogen Normal mg/dL (0.2-1.0) 03/29/17 12:18 Ur Leukocyte Esterase 1+ Terri/uL (Negative) H 03/29/17 12:18 Urine WBC (Auto) 16 /hpf (0-5) H 03/29/17 12:18 Urine RBC (Auto) 5 /hpf (0-3) H 03/29/17 12:18 Ur Squamous Epith Cells < 1 /hpf (0-5) 03/29/17 12:18 Influenza Typ A,B (EIA) Negative for flu a/b (NEGATIVE) 03/29/17 09:04 - Hospital Course Hospital Course: Patient seen and examined at bedside. She reports that she is feeling better and does not feel short of breath anymore. Reports that her cough is better and she has been able to expectorate white yellow nonbloody sputum. She is currently off nasal cannula, on room air only. She states her appetite has improved. She denies chest pain, abdominal pain, fever, chills, leg pain. Admits to diarrhea but denies foul odor or presence of blood - she states that she has had diarrhea since her hysterectomy at age 55. Assessment and plan 86 year old female with history of HTN, HLD who was brought in by EMS for respiratory distress, given Ketamine and Nitropaste en route. She came into the ER for complaints of shortness of breath that worsened over past 2 days, but has been going on for 8 months, associated with cough, mild chest pressure, palpitations. Acute exacerbation of COPD On Room Air - saturating 97% Continue to monitor O2 sat Afebrile Discharge Exam - Head Exam Head Exam: ATRAUMATIC, NORMAL INSPECTION, NORMOCEPHALIC Discharge Plan - Discharge Medications Prescriptions: Fluticasone/Salmeterol 250/50 [Advair Diskus] 1 dsk IH Q12 #2 puff Aspirin [Aspirin Chewable] 81 mg PO DAILY #30 chew Losartan [Cozaar] 100 mg PO DAILY #30 tab Rosuvastatin Calcium [Crestor] 10 mg PO HS #30 tab guaiFENesin [Mucinex LA] 600 mg PO BID #14 tab amLODIPine [Norvasc] 10 mg PO DAILY #30 tab predniSONE [Prednisone] 30 mg PO DAILY #18 tab predniSONE [predniSONE Tab] 5 mg PO DAILY #3 tab Metoprolol Succinate [Toprol XL] 50 mg PO DAILY #30 tab Albuterol HFA [Ventolin HFA 90 mcg/actuation (8 g)] 0.09 mg IH Q6 #2 puff - Follow Up Plan Condition: STABLE Disposition: HOME/ ROUTINE Instructions: Metoprolol (By mouth), Albuterol (By breathing), Prednisone (By mouth), Aspirin (By mouth), Guaifenesin (By mouth), Amlodipine (By mouth), Losartan (By mouth), Fluticasone/Salmeterol (By breathing), Rosuvastatin (By mouth), Heart Failure (DC), How to Stop Smoking (DC), Heart Healthy Diet (DC), Cigarette Smoking and Your Health (GEN), COPD (Chronic Obstructive Pulmonary Disease) (DC) Additional Instructions: Please f/u with Dr. Calixto monten[place]/Dr. Cortes office in 1 week Continue medication as per Med. rec. smoking cessation Referrals: Noah Urias MD [Staff Provider] - Jorge A Cortes MD [Staff Provider] - Deshawn [place]en[place] MD [Staff Provider] -
== END 2017-04-05 16:55 | disposition home or self-care (01) | DRG 292 ==
LOC: C.ER 09:00 → C.9E 10:46 → C.6T 17:00
PROVIDERS: ADMIT Internal Medicine; ATTEND Internal Medicine
PROC: 5A1945Z Respiratory Ventilation, 24-96 Consecutive Hours (ICD-10-PCS; principal; 2017-03-29)
DX: I11.0 Hypertensive heart disease with heart failure (principal); J44.1 Chronic obstructive pulmonary disease with (acute) exacerbation; Z99.81 Dependence on supplemental oxygen; I07.1 Rheumatic tricuspid insufficiency; Z68.1 Body mass index [BMI] 19.9 or less, adult; F17.200 Nicotine dependence, unspecified, uncomplicated; E78.5 Hyperlipidemia, unspecified; I25.10 Atherosclerotic heart disease of native coronary artery without angina pectoris; I35.1 Nonrheumatic aortic (valve) insufficiency; I50.9 Heart failure, unspecified